=== PATIENT | female | born 1960 | race Caucasian/White ===

== ENCOUNTER → 2017-02-19 | Outpatient (CLI) | payer OTHER ==
[2017-02-19 07:40] LABS: BASOPHILS % (AUTO) 1 % (0-10); EOSINOPHILS # (AUTO) 0.1 10^3/uL (0.0-0.3); EOSINOPHILS % (AUTO) 3 % (0-10); LYMPHOCYTES # (AUTO) 1.1 X 10^3 (1.0-4.0); LYMPHOCYTES % (AUTO) 30 % (12-44); MEAN CORPUSCULAR HEMOGLOBIN 32 PG (25-34); MEAN CORPUSCULAR HGB CONC 33 G/DL (32-36); MEAN CORPUSCULAR VOLUME 97 FL (80-99); MEAN PLATELET VOLUME 9.8 FL (7.4-10.4); MONOCYTES # (AUTO) 0.4 X 10^3 (0.0-1.0); MONOCYTES % (AUTO) 11 % (0-12); NEUTROPHILS # (AUTO) 2.1 X 10^3 (1.8-7.8); NEUTROPHILS % (AUTO) 55 % (42-75); PLATELET COUNT 225 10^3/uL (130-400); RED BLOOD COUNT 4.24 10^6/uL (4.35-5.85); RED CELL DISTRIBUTION WIDTH 12.2 % (10.0-14.5); WHITE BLOOD COUNT 3.7 10^3/uL (4.3-11.0)
[2017-02-19 08:00] LABS: ALANINE AMINOTRANSFERASE 16 U/L (0-55); ALBUMIN 4.3 G/DL (3.2-4.5); ANION GAP 7 MMOL/L (5-14); ASPARTATE AMINO TRANSFERASE 20 U/L (5-34); BILIRUBIN,TOTAL 0.7 MG/DL (0.1-1.0); BLOOD UREA NITROGEN 15 MG/DL (7-18); BUN/CREATININE RATIO 21; CALCIUM 9.4 MG/DL (8.5-10.1); CARBON DIOXIDE 27 MMOL/L (21-32); CHLORIDE 107 MMOL/L (98-107); CHOLESTEROL 236 MG/DL (< 200); CREATININE SERUM 0.73 MG/DL (0.60-1.30); DIRECT LDL 141 MG/DL (1-129); GFR ESTIMATED > 60; GLUCOSE 96 MG/DL (70-105); SODIUM 141 MMOL/L (135-145); TOTAL PROTEIN 7.2 G/DL (6.4-8.2); TRIGLYCERIDES 85 MG/DL (<150); VLDL CHOLESTEROL 17 MG/DL (5-40)
[2017-02-19 08:20] LABS: THYROID STIMULATING HORMONE 2.13 UIU/ML (0.35-4.94)
== END ==
LOC: LAB 07:22
PROVIDERS: ATTEND Internal Medicine
DX: Z00.00 Encounter for general adult medical examination without abnormal findings (principal); E55.9 Vitamin D deficiency, unspecified; E78.00 Pure hypercholesterolemia, unspecified; E78.1 Pure hyperglyceridemia; E03.9 Hypothyroidism, unspecified
CPT/HCPCS: 36415; 80053; 80061; 82306; 84439; 84443; 85025

== ENCOUNTER → 2017-06-28 | Outpatient (CLI) | payer OTHER ==
--- NOTE | 2017-07-01 15:32 | Diagnostic Imaging Report ---
EXAMINATION: Bilateral screening mammogram 2D views with tomosynthesis. The current study was also evaluated with a Computer Aided Detection (CAD) system. INDICATION: Screening. PERSONAL HISTORY: No current complaints stated on the questionnaire. COMPARISON: 06/20/2016. FINDINGS: The breasts are composed of heterogeneously dense parenchyma which may decrease mammographic sensitivity. There are scattered benign-appearing calcifications. Allowing for technique and positional differences, no suspicious change is seen. IMPRESSION: Dense breasts with no definite change. ACR BI-RADS Category 2: Benign findings. Result letter will be mailed to the patient. Note: At least 10% of breast cancer is not imaged by mammography. Dictated by: Dictated on workstation # [id number]
== END ==
LOC: RAD 13:13
PROVIDERS: ATTEND Internal Medicine
DX: Z12.31 Encounter for screening mammogram for malignant neoplasm of breast (principal)
CPT/HCPCS: 77067

== ENCOUNTER 2017-12-05 05:28 | Outpatient (CLI) | payer OTHER ==
[~2017-12-05] VITALS: Ht 170.2 cm; Wt 59.0 kg
[2017-12-05] MEDS ORDERED: LEVO75TA6 PO (11:48)
[2017-12-05] MEDS ORDERED: SPIR25TA3 PO (11:48)
[2017-12-05] MEDS ORDERED: ESTR1TAB24 PO (11:48)
== END 2017-12-05 11:54 ==
LOC: PREOP 05:28
PROVIDERS: ATTEND Obstetrics & Gynecology
DX: Z01.818 Encounter for other preprocedural examination (principal); N81.4 Uterovaginal prolapse, unspecified; D64.9 Anemia, unspecified

== ENCOUNTER 2017-12-13 08:56 | Day surgery (SDC) | payer OTHER ==
[~2017-12-13] VITALS: Ht 170.2 cm; Wt 59.0 kg
[~2017-12-13 08:56] MED LIST: ESTR1TAB24 PO; LEVO75TA6 PO; SPIR25TA3 PO
[2017-12-13 09:00] VITALS: BP 112/80
[2017-12-13] MEDS ORDERED: LACTATED RINGERS 1,000 ML IV PRN (09:04)
[2017-12-13] MEDS ORDERED: ceFAZolin INJECTION 1,000 MG in NS (IVPB) 100 ML IV ONE (09:15)
[2017-12-13] MEDS: LACTATED RINGERS 1,000 ML IV PRN ×2 (09:20→11:00)
[2017-12-13] MEDS ORDERED: ONDANSETRON 4 MG/2 ML (SDV) Z0FRAN ONE (09:22)
[2017-12-13] MEDS ORDERED: FAMOTIDINE 20MG/2ML IV (PEPCID) ONE (09:23)
[2017-12-13] MEDS ORDERED: ONDANSETRON 4 MG/2 ML (SDV) Z0FRAN IV ONE (09:30)
[2017-12-13] MEDS ORDERED: FAMOTIDINE 20MG/2ML IV (PEPCID) IV ONE (09:30)
[2017-12-13 09:42] LABS: BASOPHILS % (AUTO) 1 % (0-10); EOSINOPHILS # (AUTO) 0.1 10^3/uL (0.0-0.3); EOSINOPHILS % (AUTO) 2 % (0-10); HEMATOCRIT 39 % (35-52); HEMOGLOBIN 13.4 G/DL (11.5-16.0); LYMPHOCYTES # (AUTO) 1.2 X 10^3 (1.0-4.0); LYMPHOCYTES % (AUTO) 22 % (12-44); MEAN CORPUSCULAR HEMOGLOBIN 33 PG (25-34); MEAN CORPUSCULAR HGB CONC 34 G/DL (32-36); MEAN CORPUSCULAR VOLUME 97 FL (80-99); MEAN PLATELET VOLUME 9.8 FL (7.4-10.4); MONOCYTES # (AUTO) 0.5 X 10^3 (0.0-1.0); MONOCYTES % (AUTO) 9 % (0-12); NEUTROPHILS # (AUTO) 3.6 X 10^3 (1.8-7.8); NEUTROPHILS % (AUTO) 66 % (42-75); PLATELET COUNT 244 10^3/uL (130-400); RED BLOOD COUNT 4.06 10^6/uL (4.35-5.85); RED CELL DISTRIBUTION WIDTH 11.4 % (10.0-14.5); WHITE BLOOD COUNT 5.4 10^3/uL (4.3-11.0)
--- NOTE | 2017-12-13 10:00 | Progress Note-Pre Operative ---
Pre-Operative Progress Note H&P Reviewed The H&P was reviewed, patient examined and no changes noted. Date Seen by Provider: Dec 13, 2017 Time Seen by Provider: 10:00 Date H&P Reviewed: Dec 13, 2017 Time H&P Reviewed: 10:00 Pre-Operative Diagnosis: Uterovaginal prolapse and stress urinary incontinence ANTONIO ANAYA MD Dec 13, 2017 10:00 am
[2017-12-13] MEDS ORDERED: ROCURONIUM 10 MG/ML 5 ML SYRINGE IV ONE (10:01)
[2017-12-13] MEDS ORDERED: LIDOCAINE PF 2% 5 ML (XYLOCAINE) VIAL ONE (10:01)
[2017-12-13] MEDS ORDERED: proPOfol 200 MG/20 ML (DIPRIVAN) VIAL IV ONE (10:01)
[2017-12-13] MEDS ORDERED: SEVOFLURANE (ULTANE) 15 ML INHAL SOLN ONE ×6 (10:01→12:14)
[2017-12-13] MEDS ORDERED: DEXAMETHASONE 10 MG/ML (DECADRON) 1 ML VIAL ONE (10:01)
--- NOTE | 2017-12-13 10:01 | Progress Note-Post Operative ---
Post-Operative Progess Note Surgeon (s)/Motor Coach Chauffeur (s) Surgeon ANTONIO ANAYA MD Motor Coach Chauffeur: Precious King Pre-Operative Diagnosis Uterovaginal prolapse and stress urinary incontinence Post-Operative Diagnosis Same with pathology pending Procedure & Operative Findings Date of Procedure 12/13/17 Procedure Performed/Findings T LH/BSO/A&P repair with enterocele repair and with with Dr. Joseph pubovaginal sling and cystoscopy Anesthesia Type GETA Estimated Blood Loss Estimated blood loss (mL): 100cc Specimens/Packing Specimens Removed Uterus fallopian tubes and ovaries Packing: Kerlix to the vagina ANTONIO ANAYA MD Dec 13, 2017 10:01
[2017-12-13] MEDS ORDERED: BUP/EPI 0.5% 1:200,000 (SENSORCAINE) 30 ML VIAL ONE (10:02)
[2017-12-13] MEDS ORDERED: MIDAZOLAM 2 MG/2 ML (VERSED) VIAL ONE (10:02)
[2017-12-13] MEDS ORDERED: fentaNYL INJECTION 100 MCG/2 ML AMP ONE (10:02)
[2017-12-13] MEDS ORDERED: OXYC-465 PO (10:07)
[2017-12-13] MEDS ORDERED: DOCU100C37 PO (10:07)
[2017-12-13] MEDS ORDERED: IBUP-1780 PO (10:07)
--- NOTE | 2017-12-13 10:09 | Discharge Instructions ---
Discharge Instructions Discharge Medications New, Converted or Re-Newed RX: RX on Chart Patient Instructions Patient Instructions: As directed Return to The Hospital For: As directed Activity & Diet Discharge Diet: No Restrictions Activity as Tolerated: No Orders-Post D/C & Referrals Follow Up Appt: Return to clinic with me on Saturday December 16, 2017 at 9:30 AM fotr staple removal Call to make follow up appt. for patient in 4 weeks. Activity: Rest for 24 hours, than as tolerated. Wound Care: May remove Band-Aid tomorrow. Replace as desired. Keep incisions clean and dry. Wash daily with soap and water. Please call in RX to patient pharmacy. Diet: As tolerated-Clear Liquids only if nauseated. Tomorrow, may shower or tub bathe as desired. No driving for 24 hours, no alcoholic beverages for 24 hours, and nothing per vagina (no tampons, douching, or intercourse) for 8 weeks. Patient to return to the clinic as soon as possible for: Temperature greater than 101F, Severe Pain, Foul discharge from incision or vagina, Excessive Bleeding (more than a period). ANTONIO ANAYA MD Dec 13, 2017 10:09 am
[2017-12-13] MEDS ORDERED: ESTRADIOL VAGINAL CREAM 42.5 GM (ESTRACE) VG ONE (10:14)
[2017-12-13] MEDS ORDERED: KETOROLAC 30 MG/ML VIAL IVP SCH ×2 (10:15→19:00)
[2017-12-13] MEDS ORDERED: BENZOCAINE/MENTHOL (DERMOPLAST) 56 ML CAN TP PRN (10:15)
[2017-12-13] MEDS ORDERED: ONDANSETRON 4 MG/2 ML (SDV) Z0FRAN IVP PRN ×2 (10:15→12:45)
[2017-12-13] MEDS ORDERED: WATER (STERILE) FOR INJ 10 ML BTL INJ ONE (10:15)
[2017-12-13] MEDS ORDERED: MEPERIDINE (DEMEROL) INJ 100 MG/ML IM PRN (10:15)
[2017-12-13] MEDS ORDERED: PROMETHAZINE INJ 25 MG/ML (PHENERGAN) AMP IM PRN (10:15)
[2017-12-13] MEDS ORDERED: ESTROGENS CONJ IV 25 MG/5 ML (PREMARIN) VIAL IVP ONE (10:15)
--- NOTE | 2017-12-13 12:11 | Progress Note-Post Operative ---
Post-Operative Progess Note Surgeon (s)/Installation Engineer (s) Surgeon CALLIE SOLARES MD Installation Engineer: JACLYN Pre-Operative Diagnosis Uterovaginal prolapse and stress urinary incontinence Post-Operative Diagnosis SAME Procedure & Operative Findings Date of Procedure 12/13/17 Procedure Performed/Findings PVS AND CYSTO Anesthesia Type GENERAL Estimated Blood Loss Estimated blood loss (mL): NEGLIGIBLE Specimens/Packing Specimens Removed N/A Packing: Kerlix to the vagina CALLIE SOLARES MD Dec 13, 2017 12:11 pm
[2017-12-13] MEDS: morphine INJ 10 MG/ML 1ML (SYR OR VIAL) IVP PRN ×2 (12:40→12:45)
[2017-12-13] MEDS ORDERED: KETOROLAC 30 MG/ML VIAL ONE (12:44)
[2017-12-13] MEDS ORDERED: WATER (STERILE) FOR INJECTION 10 ML ONE (12:45)
[2017-12-13] MEDS ORDERED: ESTROGENS CONJ IV 25 MG/5 ML (PREMARIN) VIAL ONE (12:45)
[2017-12-13] MEDS ORDERED: MEPERIDINE (DEMEROL) INJ 50 MG/ML IVP PRN (12:45)
[2017-12-13] MEDS ORDERED: HYDROmorphone (DILAUDID) 2 MG/ML VIAL ONE (13:10)
[2017-12-13] MEDS: HYDROmorphone (DILAUDID) 2 MG/ML VIAL IVP PRN ×2 (13:15→13:25)
[2017-12-13 14:05] VITALS: BP 93/58
[2017-12-13] MEDS ORDERED: D5 LR IV SOLUTION 1,000 ML IV ONE (14:12)
[2017-12-13] MEDS: D5 LR IV SOLUTION 1,000 ML IV SCH ×2 (14:21→22:15)
--- NOTE | 2017-12-13 14:58 | Anesthesia-General Post-Op ---
General Patient Condition Mental Status/LOC: Same as Preop Cardiovascular: Satisfactory Nausea/Vomiting: Absent Respiratory: Satisfactory Pain: Controlled Complications: Absent Post Op Complications Complications None Follow Up Care/Instructions Patient Instructions None needed. Anesthesia/Patient Condition Patient Condition Patient is doing well, no complaints, stable vital signs, no apparent adverse anesthesia problems. No complications reported per nursing. D/C home per [facility] Criteria: No BRIAN KING CRNA Dec 13, 2017 14:58
[2017-12-13 16:00] VITALS: BP 92/57
[2017-12-13] MEDS ORDERED: oxyCODONE/APAP 10/325MG (PERCOCET 10) TABLET PO ONE (16:42)
[2017-12-13] MEDS: oxyCODONE/APAP 10/325MG (PERCOCET 10) TABLET PO PRN ×2 (16:46→21:06)
--- NOTE | 2017-12-13 18:37 | OPERATIVE REPORT ---
DATE OF SERVICE: 12/13/2017 PREOPERATIVE DIAGNOSIS: On my part, stress urinary incontinence. POSTOPERATIVE DIAGNOSIS: On my part, stress urinary incontinence. OPERATION PERFORMED: Pubovaginal sling and cystoscopy. SURGEON: Callie Solares MD. AIRPLANE RIGGER: Orestes North MD. ANESTHESIA: General. COMPLICATIONS: None. DESCRIPTION OF PROCEDURE: Under satisfactory general anesthesia, the patient in extended lithotomy position and after Dr. North proceeded with the first part of his surgery that he will dictate, went ahead and put a Calixto catheter draining clear urine. I passed the Solyx device sling on both sides using the described technique. The sling was sitting nicely under the mid urethra with no tension or twist and passage of a curved hemostat easily between it and the underlying urethra. I removed the Calixto catheter to perform cystoscopy to confirm the integrity of the bladder, ureters and urethra and presence of the sling under the mid urethra. I left the bladder half full, removed the cystoscope and performed a manual Valsalva maneuver that was negative. I reinserted a Calixto catheter draining clear urine. Estimated blood loss on my part negligible and Dr. North proceeded with the rest of his surgery that he will dictate. Job ID: [id number] DocumentID: [id number] Dictated Date: 12/13/2017 12:13:05 Sash Assembler Date: 12/13/2017 18:37:09 Dictated By: CALLIE SOLARES MD
--- NOTE | 2017-12-13 19:18 | OPERATIVE REPORT ---
DATE OF SERVICE: 12/13/2017 PREOPERATIVE DIAGNOSES: Uterovaginal prolapse, stress urinary incontinence. POSTOPERATIVE DIAGNOSES: Uterovaginal prolapse, stress urinary incontinence with enterocele. OPERATIVE PROCEDURE: Total laparoscopic hysterectomy with bilateral salpingo-oophorectomy followed by anterior and posterior vaginal repair with enterocele repair with Dr. Jarrell doing a pubovaginal sling and a cystoscopy. OPERATIVE DESCRIPTION: With the patient in supine position under satisfactory general anesthesia, she was repositioned in dorsal lithotomy position in the [facility] and prepped and draped in the usual fashion for abdominal and vaginal surgery. Calixto catheter was placed in the urinary bladder and left to dependent drainage. Weighted speculum was placed in the posterior fornix of the vagina. Cervix was exposed and grasped anteriorly with single tooth tenaculum. Uterus was sounded to 11 cm with uterine sound. Cervix was then serially dilated with Heron dilators to allow placement of a Laurie II manipulator, which was positioned with a 6 mm x 8 cm uterine probe and a 35 mm colpotomy ring. Sutures of #1 Vicryl were placed at 3 o'clock and 9 o'clock position of the cervix to affix the cervix to the manipulator. The patient was brought in low dorsal lithotomy position. A 12 mm incision was made 3 cm superior to the umbilicus. Veress needle was placed through that incision into the abdominal cavity and correct placement was confirmed with a water drop test. The abdomen was insufflated with 2.4 liters of carbon dioxide and the Veress needle was removed and the abdominal wall was transilluminated. Ports of 8 mm were placed 9 cm lateral to the umbilicus under direct vision. The incision sites for all three ports were infiltrated with 0.5% Marcaine with epinephrine prior to incision. The patient was placed in Trendelenburg allowing the bowel to spill up out of the pelvis. The operative instruments were placed and affixed and then I retired to the da Magalis console for the laparoscopic portion of the procedure. Using a vessel sealer on the right and a bipolar fenestrated grasper on the left, the pelvis was first examined. The uterus was somewhat small, mottled in appearance and quite mobile. Both ovaries were atretic appearing. Both fallopian tubes showed evidence of remote tubal sterilization with Falope ring. The appendix could not be identified as it was high on the right and behind multiple loops of small bowel. There was no abnormal pathology in the cul-de-sac. Both ureters were seemed to peristalse at this time. The right tube and ovary were grasped and elevated. The IP ligament was clamped, cauterized and divided that was continued with the vessel sealer across the mesovarium, the round ligament, the broad ligament and down onto the cardinal ligament. Same procedure was performed on the left allowing for removal of both tubes and ovaries eventually with the uterus. Anterior lower uterine segment peritoneum was divided with monopolar catarina replacing the vessel sealer. The bladder was carefully dissected down off the lower uterine segment and colpotomy incision was made at 12 o'clock position onto the colpotomy ring. That incision was continued circumferentially until the entire colpotomy ring was exposed. The uterus with the tubes and ovaries still attached was extracted through the vagina. The vaginal cuff was closed with two sutures of V-Loc barbed suture starting first from the right angle including the uterine vessel pedicles then continuing stepwise to the midportion of the vaginal cuff. The second suture was started on the left doing the same thing closing the cuff completely and with complete hemostasis. The bladder peritoneum was brought back down onto the cuff with the last stitch on each side. The pelvis was irrigated and examined for hemostasis, which was complete. The ureters were seemed to peristalse before this procedure, during the procedure and now after the completion of the hysterectomy. They were both peristalsing freely. Neither showed any dilation of the procedure. The laparoscopic portion of the procedure at this point was halted. The operative instruments were removed under direct vision as were the ports. The patient was brought out of Trendelenburg. The abdomen was evacuated insufflating gas in the process of removing the ports. The skin incisions were stapled. The fascia at the supraumbilical incision was closed with qrhnmh-hy-spovs suture of 2-0 Vicryl. The patient was now repositioned for the vaginal portion of the procedure. The weighted speculum was placed in the posterior fornix of the vagina. The anterior vaginal wall was grasped with two Levi clamps, starting the anterior repair by opening the vaginal wall in the midline, dissecting the vaginal wall off the muscularis of the vagina back to the pubic rami bilaterally. The endopelvic fascia was then plicated with sutures of 2-0 Vicryl elevating the bladder and lengthening the urethra. At this point, Dr. Jarrell assumed care of the patient, placed his pubovaginal sling and performed cystoscopy. I remained to assist. On completion of Dr. Jarrell's portion of the procedure, he scrubbed out and I resumed care of the patient, resected redundant anterior vaginal wall muscularis mucosa and then closed the vaginal wall with a running locked suture of 2-0 Vicryl. Good support was evident and good hemostasis was achieved. Posterior repair was now affected by placing Levi clamps on the perineum and the hymenal ring at 5 o'clock and 7 o'clock position and the inverted triangle of skin was removed from the perineal body in upright triangle from the posterior vaginal floor. The rectovaginal space was entered sharply and dissected bluntly to the apex of the vagina where a small enterocele was found. This was reduced and plicated with two 2-0 Vicryl pursestring sutures obliterating the enterocele. The rectovaginal space was then obliterated with additional sutures of 2-0 Vicryl and the perineal body was restored with additional sutures of 2-0 Vicryl as well. Redundant posterior vaginal wall muscularis mucosa was removed sharply. The vaginal wall was closed with running locked suture of 3-0 Vicryl Rapide, that closure was continued past the hymenal ring down on the perineal body then back up subcutaneous to the hymenal ring where the suture was tied. The vagina was examined for hemostasis. That being complete, the vagina was filled with Estrace vaginal cream and a pack of Kerlix gauze was placed. Digital rectal exam confirmed no stricture or stenosis of the rectum and no sutures into or through the rectal mucosa. Sponge and needle counts were correct at the end of the procedure. Estimated blood loss for the total procedure was around 100 mL, 95% of that was from the anterior and posterior vaginal repairs. The patient tolerated the procedure well and was uneventfully awakened from general anesthesia and transferred to the recovery room in stable condition. Job ID: [id number] DocumentID: [id number] Dictated Date: 12/13/2017 12:21:29 Organ Pipe Voicer Date: 12/13/2017 19:17:40 Dictated By: ANTONIO ANAYA MD
[2017-12-13 21:00] VITALS: BP 88/52
[2017-12-14 01:50] VITALS: BP 89/49
[2017-12-14] MEDS ORDERED: IBUPROFEN 800 MG (MOTRIN) TAB PO ONE ×2 (01:57→07:42)
[2017-12-14] MEDS: IBUPROFEN 800 MG (MOTRIN) TAB PO SCH ×2 (02:00→07:51)
[2017-12-14 05:30] VITALS: BP 88/51
[2017-12-14 07:50] VITALS: BP 79/50
[2017-12-14] MEDS ORDERED: ESTRADIOL 1 MG TAB (ESTRACE) PO SCH (09:00)
[2017-12-14] MEDS ORDERED: DOCUSATE SODIUM 100 MG (COLACE) CAP PO SCH (09:00)
--- NOTE | 2017-12-14 10:54 | Discharge Inst-Urology ---
Discharge Inst-Urology Discharge Medications New, Converted, or Re-newed RX: RX given to Patient/Fam Patient Instructions/Follow Up Plan PATIENT to make appointment to been seen in office in 2 weeks. Rest till then Keep bowels soft and moving Showers no bath Increase oral fluids for 48 hours and then as needed. If questions or concerns contact your physician Or seek help at emergency department. CALLIE SOLARES MD Dec 14, 2017 10:53
--- NOTE | 2017-12-14 10:56 | Progress Note-Urology ---
Progress Note-Urology Progress Notes/Assess & Plan Progress/Assessment & Plan AFEBRILE, VSS. VOIDED THIS AM. PVR SCAN 220. PLAN STRAIGHT CATH AND RECHECK PVR AGAIN LATER AND PLAN DISCHARGE Final Diagnosis INCONTINENCE CALLIE SOLARES MD Dec 14, 2017 10:56 am
--- OUTSIDE RECORDS SUMMARY | 2017-12-15 04:08 | XMS REPORT | Clinical Summary ---
Author Author User, [employer] Organization [facility] [place] Address Unknown Phone Unavailable Allergies, Adverse Reactions, Alerts Allergy Name Reaction Description Start Date Severity Status Provider No Known Allergies Paul Jaylene Conditions or Problems Problem Name Problem Code Onset Date Status Entry Date Provider Comment Standard Description Annotate SCREENING MAMMOGRAM NEC V76.12 Resolved Joanne Bui Other screening mammogram GOITER 240.9 Resolved Joanne Bui Goiter, unspecified GENITAL HERPES 054.10 Active Joanne Bui Genital herpes, unspecified HERPES SIMPLEX INFECTION 054.9 Active Joanne Bui Herpes simplex without mention of complication WELL WOMAN V70.0 Resolved Joanne Bui Routine general medical examination at a health care facility PAC 427.61 Resolved Joanne Bui Supraventricular premature beats PALPITATIONS, OCCASIONAL 785.1 Resolved Joanne Bui Palpitations MENOPAUSAL SYNDROME 627.0 Resolved Joanne Bui Premenopausal menorrhagia MENORRHAGIA 626.2 Resolved Joanne Bui Excessive or frequent menstruation SMOKER 305.1 Active Joanne Bui Tobacco use disorder VAGINITIS, ATROPHIC 627.3 Resolved Joanne Bui Postmenopausal atrophic vaginitis INSOMNIA 780.52 Resolved Joanne Bui Insomnia, unspecified HEALTH SCREENING V70.0 Active Joanne Bui Routine general medical examination at a health care facility CYSTOCELE, MIDLINE 618.01 Active Joanne Bui Cystocele, midline URINARY FREQUENCY 788.41 Active Joanne Bui Urinary frequency ACNE VULGARIS, FACIAL 706.1 Active Joanne Bui Other acne CANDIDIASIS, VAGINAL 112.1 Active Joanne Bui Candidiasis of vulva and vagina Medication List Medication Instructions Start Date Stop Date Generic Name NDC Status Provider Patient Instruction PREMARIN 0.625 MG/GM CREA Apply a small amount to affected area nightly prn ESTROGENS, CONJUGATED VAGINAL 36657075021 No Longer Active Joanne Bui CLINDAMAX 1 % LOTN apply every day CLINDAMYCIN PHOSPHATE 70442470646 Active Joanne Bui RETIN-A 0.025 % CREA apply every night TRETINOIN 34251866477 Active Joanne Bui SPIRONOLACTONE 25 MG TAB 1 PO daily SPIRONOLACTONE 35604200051 Active Joanne Bui TERAZOL 7 0.4 % CREA 1 applicator full per vagina QHS for 7 days TERCONAZOLE VAGINAL 07421686714 No Longer Active Joanne MILLERTIX CONTINUING MONTH UBALDO 1 MG TABS as directed VARENICLINE TARTRATE 80940560523 No Longer Active Joanne Bui XANAX 0.25 MG TABS 1 PO Q6hrs prn ALPRAZOLAM 40419388005 No Longer Active Joanne Bui LAMISIL 250 MG TAB 1 PO Daily TERBINAFINE HCL 31155681816 No Longer Active Joanne Bui CALTRATE 600 PLUS-VIT D 600-200 MG-IU TABS 1 PO BID CALCIUM- VITAMIN D Active Joanne Bui CHANTIX STARTING MONTH UBALDO 0.5 MG X 11 & 1 MG X 42 MISC As Directed VARENICLINE TARTRATE 08195452073 No Longer Active Joanne Bui ORTHO-CYCLEN (28) 0.25-35 MG-MCG TABS 1 PO daily NORGESTIMATE-ETH ESTRADIOL 63980860991 No Longer Active Joanne Bui TERAZOL 7 0.4 % CREA 1 applicator full per vagina QHS for 7 days TERCONAZOLE VAGINAL 26497598988 No Longer Active Z Z VALTREX 1 GM TABS 1 PO BID for blisters VALACYCLOVIR HCL 36780336414 Active Joanne Bui CHANTIX 1 MG TABS 1 PO daily VARENICLINE TARTRATE 42449253852 No Longer Active Joanne Bui ACYCLOVIR 400 MG TABS 1 PO BID ACYCLOVIR 61655564477 No Longer Active Joanne Bui Immunizations Vaccine Administration Date Value Standard Description Influenza vaccine given done influenza virus vaccine, unspecified formulation Influenza vaccine given Done influenza virus vaccine, unspecified formulation Vital Signs Date Name Value Unit Range Description blood pressure, diastolic - 8462-4 62 mm[Hg] BP li blood pressure, systolic - 8480-6 106 mm[Hg] BP sys pulse rate E&M - 8867-4 66 /min Heart rate respiratory rate E&M - 9279-1 14 /min Resp rate weight E&M - 3141-9 142 [lb_av] Weight Measured blood pressure, diastolic - 8462-4 78 mm[Hg] BP li blood pressure, systolic - 8480-6 118 mm[Hg] BP sys pulse rate E&M - 8867-4 72 /min Heart rate respiratory rate E&M - 9279-1 14 /min Resp rate weight E&M - 3141-9 140 [lb_av] Weight Measured Encounters Code Encounter Date Provider Facility CPT-85708 Ofc Vst, Est Level III 15:44:12 CDT Joanne Bui DO, FACP CPT-78767 Ofc Vst, Est Level IV 15:54:42 RECORDS ASSISTANT Joanne Bui [facility] CPT-83351 Ofc Vst, Est Level III 12:52:40 CDT Joanne Bui DO, FACP CPT-00042 Ofc Vst, Est Level IV 15:24:05 CDT [facility] Vilma Bui [facility] CPT-00188 Ofc Vst, Est Level V 15:35:53 RECORDS ASSISTANT [facility] Vil[facility] CPT-71579 Ofc Vst, Est Level IV 16:23:15 RECORDS ASSISTANT Joanne Bui DO, FACP CPT-79031 Ofc Vst, Est Level III 14:48:27 CDT Joanne Bui [facility] [place] CPT-83145 Ofc Vst, New Level III 09:49:12 RECORDS ASSISTANT Jonane Bui [facility] [place] Procedures Code Procedure Name Date Entry Date Standard Description CPT-59226 Handling of specimen from office to lab 15:44:12 CDT CPT-92634 Preventive, Est, (40-64) 15:01:11 RECORDS ASSISTANT CPT-36116 Handling of specimen from office to lab 13:56:07 RECORDS ASSISTANT CPT-73873 Preventive, Est, (40-64) 13:56:07 RECORDS ASSISTANT CPT-53496 Preventive, Est, (40-64) 13:55:20 CDT CPT-48366 Preventive, Est, (40-64) 15:25:57 RECORDS ASSISTANT CPT-01114 Handling of specimen from office to lab 15:25:57 RECORDS ASSISTANT CPT-26866 Preventive, Est, (40-64) 12:28:48 RECORDS ASSISTANT CPT-10723 Handling of specimen from office to lab 12:28:48 RECORDS ASSISTANT
--- OUTSIDE RECORDS SUMMARY | 2017-12-15 04:08 | XMS REPORT | Clinical Summary ---
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 Active Joanne Bui Multiple involvement of mitral and aortic valves Medication List Medication Instructions Start Date Stop Date Generic Name NDC Status Provider Patient Instruction CHANTIX CONTINUING MONTH UBALDO 1 MG TABS 1 PO BID VARENICLINE TARTRATE 56563360023 Active Joanne Bui SYNTHROID 0.05 MG TAB 1 PO daily LEVOTHYROXINE SODIUM 84012814371 Active Ilsa Davila PREMARIN 0.625 MG/GM CREA Apply a small amount to affected area nightly prn ESTROGENS, CONJUGATED VAGINAL 65755276253 No Longer Active Joanne Bui CLINDAMAX 1 % LOTN apply every day CLINDAMYCIN PHOSPHATE 89586954187 Active Joanne Bui RETIN-A 0.025 % CREA apply every night TRETINOIN 01794554443 Active Joanne Bui SPIRONOLACTONE 25 MG TAB 1 PO daily SPIRONOLACTONE 85091394168 Active Joanne Bui TERAZOL 7 0.4 % CREA 1 applicator full per vagina QHS for 7 days TERCONAZOLE VAGINAL 12938907127 No Longer Active Joanne Bui CHANTIX CONTINUING MONTH UBALDO 1 MG TABS as directed VARENICLINE TARTRATE 41738681187 No Longer Active Joannemahi Bui XANAX 0.25 MG TABS 1 PO Q6hrs prn ALPRAZOLAM 66468599169 No Longer Active Joannemahi Bui LAMISIL 250 MG TAB 1 PO Daily TERBINAFINE HCL 40034433545 No Longer Active Joannemahi Bui CALTRATE 600 PLUS-VIT D 600-200 MG-IU TABS 1 PO BID CALCIUM- VITAMIN D Active Joannemahi Bui CHANTIX STARTING MONTH UBALDO 0.5 MG X 11 & 1 MG X 42 MISC As Directed VARENICLINE TARTRATE 67476010305 No Longer Active Joannemahi Bui ORTHO-CYCLEN (28) 0.25-35 MG-MCG TABS 1 PO daily NORGESTIMATE-ETH ESTRADIOL 60229967855 No Longer Active Joannemahi Bui TERAZOL 7 0.4 % CREA 1 applicator full per vagina QHS for 7 days TERCONAZOLE VAGINAL 47798718243 No Longer Active Z Z VALTREX 1 GM TABS 1 PO BID for blisters VALACYCLOVIR HCL 78258789531 Active Joannemahi Bui CHANTIX 1 MG TABS 1 PO daily VARENICLINE TARTRATE 72751805468 No Longer Active Joannemahi Bui ACYCLOVIR 400 MG TABS 1 PO BID ACYCLOVIR 18074237735 No Longer Active Joanne Bui Immunizations Vaccine Administration Date Value Standard Description Influenza vaccine given done influenza virus vaccine, unspecified formulation Influenza vaccine given Done influenza virus vaccine, unspecified formulation Vital Signs Date Name Value Unit Range Description blood pressure, diastolic - 8462-4 78 mm[Hg] BP li blood pressure, systolic - 8480-6 116 mm[Hg] BP sys pulse rate E&M - 8867-4 72 /min Heart rate respiratory rate E&M - 9279-1 14 /min Resp rate weight E&M - 3141-9 142 [lb_av] Weight Measured blood pressure, diastolic - 8462-4 60 mm[Hg] BP li blood pressure, systolic - 8480-6 115 mm[Hg] BP sys pulse rate E&M - 8867-4 64 /min Heart rate respiratory rate E&M - 9279-1 14 /min Resp rate weight E&M - 3141-9 138 [lb_av] Weight Measured blood pressure, diastolic - 8462-4 62 mm[Hg] [...] E&M - 3141-9 140 [lb_av] Weight Measured Diagnostic Results Date Name Value Unit Range Description Clinical Lists Update: CBC,CMP,FLP,TSH - Chemistry Estimated Glomerular Filtration Rate (calc) 102 mL/min/1.73m2 albumin, serum 4.2 g/dL cholesterol/HDL ratio, serum, percent 3.4 sodium, serum 139 mmol/L triglyceride, serum, fasting 120 mg/dL bilirubin, serum, total 0.7 mg/dL alanine aminotransferase (SGPT), serum 8 U/L aspartate aminotransferase (SGOT), serum 14 U/L protein, total, serum 6.5 g/dL potassium, serum 3.9 mmol/L LDL cholesterol, serum 124 mg/dL thyroid stimulating hormone, serum 9.28 u[iU]/mL HDL cholesterol, serum 61 mg/dL thyroxine, serum, free 1.0 ng/dL creatinine, serum 0.64 mg/dL carbon dioxide, venous blood 25 mmol/L cholesterol, serum 209 mg/dL chloride, serum 105 mmol/L calcium, serum 8.9 mg/dL urea nitrogen, blood 18 mg/dL alkaline phosphatase, serum 101 U/L glucose, plasma fasting 92 mg/dL Encounters Code Encounter Date Provider Facility CPT-60182 Ofc Vst, Est Level IV 16:47:[address] [facility] Ofc Vst, Est Level III 16:57:01 CDT [facility] OFFICE CPT-94972 Ofc Vst, Est Level III 15:44:12 CDT Joannemahi uBi DO, [facility] CPT-90617 Ofc Vst, Est Level IV 15:54:42 DIET ASSISTANT [facility]83 Ofc Vst, Est Level III 12:52:40 CDT Joannemahi Bui DO, FAC CPT-57099 Ofc Vst, Est Level IV 15:24:[address] [facility] CPT-96832 Ofc Vst, Est Level V 15:35:53 DIET ASSISTANT [facility] OFFICE CPT-46172 Ofc Vst, Est Level IV 16:23:15 DIET ASSISTANT Joanne Bui DO, FACP CPT-31611 Ofc Vst, Est Level III 14:48:27 CDT Joanne Bui [facility] [place] CPT-79580 Ofc Vst, New Level III 09:49:12 DIET ASSISTANT Joanne Bui [facility] [place] Procedures Code Procedure Name Date Entry Date Standard Description CPT-08092 Handling of specimen from office to lab 15:44:12 CDT CPT-56288 Preventive, Est, (40-64) 15:01:11 DIET ASSISTANT CPT-89564 Handling of specimen from office to lab 13:56:07 DIET ASSISTANT CPT-92628 Preventive, Est, (40-64) 13:56:07 DIET ASSISTANT CPT-85121 Preventive, Est, (40-64) 13:55:20 CDT CPT-86612 Preventive, Est, (40-64) 15:25:57 DIET ASSISTANT CPT-68311 Handling of specimen from office to lab 15:25:57 DIET ASSISTANT CPT-57074 Preventive, Est, (40-64) 12:28:48 DIET ASSISTANT CPT-61737 Handling of specimen from office to lab 12:28:48 DIET ASSISTANT
--- OUTSIDE RECORDS SUMMARY | 2017-12-15 04:09 | XMS REPORT | Clinical Summary ---
Author Author User, [employer] Organization [facility] [place] Address Unknown Phone Unavailable Allergies, Adverse Reactions, [...] affected area nightly prn ESTROGENS, CONJUGATED VAGINAL 25737530958 No Longer Active Joanne Bui CLINDAMAX 1 % LOTN apply every day CLINDAMYCIN PHOSPHATE 64750458967 Active Joanne Bui RETIN-A 0.025 % CREA apply every night TRETINOIN 29844965409 Active Joanne Bui SPIRONOLACTONE 25 MG TAB 1 PO daily SPIRONOLACTONE 02770835051 Active Joanne Bui TERAZOL 7 0.4 % CREA 1 applicator full per vagina QHS for 7 days TERCONAZOLE VAGINAL 77934315361 No Longer Active Joanne MILLERTIX CONTINUING MONTH UBALDO 1 MG TABS as directed VARENICLINE TARTRATE 85130239110 No Longer Active Joanne Bui XANAX 0.25 MG TABS 1 PO Q6hrs prn ALPRAZOLAM 07925309610 No Longer Active Joanne Bui LAMISIL 250 MG TAB 1 PO Daily TERBINAFINE HCL 44378971308 No Longer Active Joanne Bui CALTRATE 600 PLUS-VIT D 600-200 MG-IU TABS 1 PO BID CALCIUM- VITAMIN D Active Joanne Bui CHANTIX STARTING MONTH UBALDO 0.5 MG X 11 & 1 MG X 42 MISC As Directed VARENICLINE TARTRATE 97688600425 No Longer Active Joanne Bui ORTHO-CYCLEN (28) 0.25-35 MG-MCG TABS 1 PO daily NORGESTIMATE-ETH ESTRADIOL 76117514000 No Longer Active Joanne Bui TERAZOL 7 0.4 % CREA 1 applicator full per vagina QHS for 7 days TERCONAZOLE VAGINAL 79269470015 No Longer Active Z Z VALTREX 1 GM TABS 1 PO BID for blisters VALACYCLOVIR HCL 60229756553 Active Joanne Bui CHANTIX 1 MG TABS 1 PO daily VARENICLINE TARTRATE 11352791803 No Longer Active Joanne Bui ACYCLOVIR 400 MG TABS 1 PO BID ACYCLOVIR 05433733525 No Longer Active Joanne Bui Immunizations Vaccine [...] mg/dL Encounters Code Encounter Date Provider Facility CPT-99179 Ofc Vst, Est Level III 15:44:12 CDT Joanne Bui DO, FACP CPT-19998 Ofc Vst, Est Level IV 15:54:42 STRIPPER CUTTER MACHINE [facility] CPT-78636 Ofc Vst, Est Level III 12:52:40 CDT Joanne Bui DO, FACP CPT-08146 Ofc Vst, Est Level IV 15:24:05 CDT [facility]anne [facility] CPT-97768 Ofc Vst, Est Level V 15:35:53 STRIPPER CUTTER MACHINE Joanne Bui [place] [facility] CPT-30260 Ofc Vst, Est Level IV 16:23:15 STRIPPER CUTTER MACHINE Joanne Bui, DO, FACP CPT-84623 Ofc Vst, Est Level III 14:48:27 CDT Joanne Bui [facility] [place] CPT-07682 Ofc Vst, New Level III 09:49:12 STRIPPER CUTTER MACHINE Joanne Bui [facility] [place] Procedures Code Procedure Name Date Entry Date Standard Description CPT-79025 Handling of specimen from office to lab 15:44:12 CDT CPT-86449 Preventive, Est, (40-64) 15:01:11 STRIPPER CUTTER MACHINE CPT-60942 Handling of specimen from office to lab 13:56:07 STRIPPER CUTTER MACHINE CPT-52521 Preventive, Est, (40-64) 13:56:07 STRIPPER CUTTER MACHINE CPT-82845 Preventive, Est, (40-64) 13:55:20 CDT CPT-64400 Preventive, Est, (40-64) 15:25:57 STRIPPER CUTTER MACHINE CPT-81840 Handling of specimen from office to lab 15:25:57 STRIPPER CUTTER MACHINE CPT-83235 Preventive, Est, (40-64) 12:28:48 STRIPPER CUTTER MACHINE CPT-84834 Handling of specimen from office to lab 12:28:48 STRIPPER CUTTER MACHINE
--- OUTSIDE RECORDS SUMMARY | 2017-12-15 04:09 | XMS REPORT | Clinical Summary ---
Author Author User, [employer] Organization [facility] [place] Address Unknown Phone Unavailable Allergies, Adverse Reactions, [...] or frequent menstruation SMOKER 305.1 Active Joanne Biu Tobacco use disorder VAGINITIS, ATROPHIC 627.3 Resolved Joanne Bui Postmenopausal atrophic vaginitis INSOMNIA 780.52 Resolved Joanne Bui Insomnia, unspecified HEALTH SCREENING V70.0 Active Joanne Bui Routine general medical examination at a health care facility CYSTOCELE, MIDLINE 618.01 Active Joanne Bui Cystocele, midline URINARY FREQUENCY 788.41 Active Joanne Bui Urinary frequency ACNE VULGARIS, FACIAL 706.1 Active Joanne Bui Other acne CANDIDIASIS, VAGINAL 112.1 Active Jaonne Bui Candidiasis of vulva and vagina HYPOTHYROIDISM, PRIMARY 244.9 Active Joanne Bui Unspecified hypothyroidism EDEMA LEG 782.3 Active Joanne Bui Edema Medication List Medication Instructions Start Date Stop Date Generic Name NDC Status Provider Patient Instruction SYNTHROID 0.05 MG TAB 1 PO daily LEVOTHYROXINE SODIUM 61477419296 Active Kita Doll PREMARIN 0.625 MG/GM CREA Apply a small amount to affected area nightly prn ESTROGENS, CONJUGATED VAGINAL 33601776925 No Longer Active Joanne Bui CLINDAMAX 1 % LOTN apply every day CLINDAMYCIN PHOSPHATE 31344895810 Active Joanne Bui RETIN-A 0.025 % CREA apply every night TRETINOIN 13967660477 Active Joanne Bui SPIRONOLACTONE 25 MG TAB 1 PO daily SPIRONOLACTONE 78766843836 Active Joanne Bui TERAZOL 7 0.4 % CREA 1 applicator full per vagina QHS for 7 days TERCONAZOLE VAGINAL 36544749012 No Longer Active Joanne Bui CHANTIX CONTINUING MONTH UBALDO 1 MG TABS as directed VARENICLINE TARTRATE 77989106178 No Longer Active Joanne Bui XANAX 0.25 MG TABS 1 PO Q6hrs prn ALPRAZOLAM 85979192443 No Longer Active Joanne Bui LAMISIL 250 MG TAB 1 PO Daily TERBINAFINE HCL 51870496382 No Longer Active Joanne Bushe Ramya CALTRATE 600 PLUS-VIT D 600-200 MG-IU TABS 1 PO BID CALCIUM- VITAMIN D Active Joannemahi Bushe Ramya CHANTIX STARTING MONTH UBALDO 0.5 MG X 11 & 1 MG X 42 MISC As Directed VARENICLINE TARTRATE 02439581135 No Longer Active Joannemahi Bushe Ramya ORTHO-CYCLEN (28) 0.25-35 MG-MCG TABS 1 PO daily NORGESTIMATE-ETH ESTRADIOL 24248084429 No Longer Active Joanne Bui TERAZOL 7 0.4 % CREA 1 applicator full per vagina QHS for 7 days TERCONAZOLE VAGINAL 27126745275 No Longer Active Z Z VALTREX 1 GM TABS 1 PO BID for blisters VALACYCLOVIR HCL 79908338595 Active Joannemahi Bushe Ramya CHANTIX 1 MG TABS 1 PO daily VARENICLINE TARTRATE 97159448262 No Longer Active Joanne Bui ACYCLOVIR 400 MG TABS 1 PO BID ACYCLOVIR 15348204255 No Longer Active Joanne Bui Immunizations Vaccine Administration Date Value Standard Description Influenza vaccine given done influenza virus vaccine, unspecified formulation Influenza vaccine given Done influenza virus vaccine, unspecified formulation Vital Signs Date Name Value Unit Range Description blood pressure, diastolic - 8462-4 60 mm[Hg] [...] mg/dL Encounters Code Encounter Date Provider Facility CPT-46229 Ofc Vst, Est Level III 16:57:01 CDT [facility]ana Bui [place] OFFICE CPT-49701 Ofc Vst, Est Level III 15:44:12 CDT [facility] Vil[place] Bui DO, FACP CPT-75690 Ofc Vst, Est Level IV 15:54:42 CDL DRIVER [facility] Vilmabriana Bui [place] OFFICE CPT-55484 Ofc Vst, Est Level III 12:52:40 CDT Joanne Bui DO, FACP CPT-01779 Ofc Vst, Est Level IV 15:24:05 CDT [facility] Vilma Bui [place] OFFICE CPT-67013 Ofc Vst, Est Level V 15:35:53 CDL DRIVER [facility] Vilma Bui [place] OFFICE CPT-35105 Ofc Vst, Est Level IV 16:23:15 CDL DRIVER Joanne Bui DO, FACP CPT-80950 Ofc Vst, Est Level III 14:48:27 CDT Joanne Bui [facility] [place] CPT-77853 Ofc Vst, New Level III 09:49:12 CDL DRIVER Joanne [place] Bui [facility] Phys[facility] [place] Procedures Code Procedure Name Date Entry Date Standard Description CPT-83916 Handling of specimen from office to lab 15:44:12 CDT CPT-54346 Preventive, Est, (40-64) 15:01:11 CDL DRIVER CPT-10256 Handling of specimen from office to lab 13:56:07 CDL DRIVER CPT-77185 Preventive, Est, (40-64) 13:56:07 CDL DRIVER CPT-06390 Preventive, Est, (40-64) 13:55:20 CDT CPT-65885 Preventive, Est, (40-64) 15:25:57 CDL DRIVER CPT-89713 Handling of specimen from office to lab 15:25:57 CDL DRIVER CPT-04045 Preventive, Est, (40-64) 12:28:48 CDL DRIVER CPT-99228 Handling of specimen from office to lab 12:28:48 CDL DRIVER
--- OUTSIDE RECORDS SUMMARY | 2017-12-15 04:09 | XMS REPORT | Clinical Summary ---
Author Author User, [employer] Organization [facility] [place] Address Unknown Phone Unavailable Allergies, Adverse Reactions, [...] MG TAB 1 PO daily LEVOTHYROXINE SODIUM 34873373205 Active Ilsa Davila PREMARIN 0.625 MG/GM CREA Apply a small amount to affected area nightly prn ESTROGENS, CONJUGATED VAGINAL 39135759403 No Longer Active Joanne Bui CLINDAMAX 1 % LOTN apply every day CLINDAMYCIN PHOSPHATE 47431052314 Active Joanne Bui RETIN-A 0.025 % CREA apply every night TRETINOIN 77060638878 Active Joanne Bui SPIRONOLACTONE 25 MG TAB 1 PO daily SPIRONOLACTONE 30688142264 Active Joanne Bui TERAZOL 7 0.4 % CREA 1 applicator full per vagina QHS for 7 days TERCONAZOLE VAGINAL 87096484133 No Longer Active Joanne Bui CHANTIX CONTINUING MONTH UBALDO 1 MG TABS as directed VARENICLINE TARTRATE 54456306516 No Longer Active Joanne Bui XANAX 0.25 MG TABS 1 PO Q6hrs prn ALPRAZOLAM 01670768977 No Longer Active Joanne Bui LAMISIL 250 MG TAB 1 PO Daily TERBINAFINE HCL 49685291413 No Longer Active Joanne Bui CALTRATE 600 PLUS-VIT D 600-200 MG-IU TABS 1 PO BID CALCIUM- VITAMIN D Active Joannemahi Bui CHANTIX STARTING MONTH UBALDO 0.5 MG X 11 & 1 MG X 42 MISC As Directed VARENICLINE TARTRATE 77753032996 No Longer Active Joanne Bui ORTHO-CYCLEN (28) 0.25-35 MG-MCG TABS 1 PO daily NORGESTIMATE-ETH ESTRADIOL 81517653328 No Longer Active Joanne Bui TERAZOL 7 0.4 % CREA 1 applicator full per vagina QHS for 7 days TERCONAZOLE VAGINAL 42292094954 No Longer Active Z Z VALTREX 1 GM TABS 1 PO BID for blisters VALACYCLOVIR HCL 16395969010 Active Joannemahi Bui CHANTIX 1 MG TABS 1 PO daily VARENICLINE TARTRATE 44290510750 No Longer Active Joanne Bui ACYCLOVIR 400 MG TABS 1 PO BID ACYCLOVIR 05978550473 No Longer Active Joanne Bui Immunizations Vaccine [...] mg/dL Encounters Code Encounter Date Provider Facility CPT-81256 Ofc Vst, Est Level III 16:57:01 CDT [facility] Vilmarodrigue Bui [place] OFFICE CPT-88627 Ofc Vst, Est Level III 15:44:12 CDT [facility] Vil[place] Bui DO, FACP CPT-83746 Ofc Vst, Est Level IV 15:54:42 WIRELESS CELLULAR TECHNICIAN [facility] CPT-17076 Ofc Vst, Est Level III 12:52:40 CDT Joannemahi Bui DO, FACP CPT-85165 Ofc Vst, Est Level IV 15:24:05 CDT [facility] CPT-87744 Ofc Vst, Est Level V 15:35:53 WIRELESS CELLULAR TECHNICIAN [facility] CPT-32714 Ofc Vst, Est Level IV 16:23:15 WIRELESS CELLULAR TECHNICIAN Joanne Bui DO, FACP CPT-04494 Ofc Vst, Est Level III 14:48:27 CDT Joanne Bui [facility] [place] CPT-96805 Ofc Vst, New Level III 09:49:12 WIRELESS CELLULAR TECHNICIAN Joanne [place] Bui [facility] [place] Procedures Code Procedure Name Date Entry Date Standard Description CPT-63322 Handling of specimen from office to lab 15:44:12 CDT CPT-82629 Preventive, Est, (40-64) 15:01:11 WIRELESS CELLULAR TECHNICIAN CPT-29361 Handling of specimen from office to lab 13:56:07 WIRELESS CELLULAR TECHNICIAN CPT-19092 Preventive, Est, (40-64) 13:56:07 WIRELESS CELLULAR TECHNICIAN CPT-60298 Preventive, Est, (40-64) 13:55:20 CDT CPT-29910 Preventive, Est, (40-64) 15:25:57 WIRELESS CELLULAR TECHNICIAN CPT-16384 Handling of specimen from office to lab 15:25:57 WIRELESS CELLULAR TECHNICIAN CPT-83868 Preventive, Est, (40-64) 12:28:48 WIRELESS CELLULAR TECHNICIAN CPT-70709 Handling of specimen from office to lab 12:28:48 WIRELESS CELLULAR TECHNICIAN
--- OUTSIDE RECORDS SUMMARY | 2017-12-15 04:10 | XMS REPORT | Clinical Summary ---
Author Author User, [employer] Organization [facility] Phys[facility] [place] Address Unknown Phone Unavailable Allergies, Adverse Reactions, [...] affected area nightly prn ESTROGENS, CONJUGATED VAGINAL 77650031482 No Longer Active Joanne Bui CLINDAMAX 1 % LOTN apply every day CLINDAMYCIN PHOSPHATE 56354662927 Active Joanne Bui RETIN-A 0.025 % CREA apply every night TRETINOIN 86189273412 Active Joanne Bui SPIRONOLACTONE 25 MG TAB 1 PO daily SPIRONOLACTONE 24409507754 Active Joanne Bui TERAZOL 7 0.4 % CREA 1 applicator full per vagina QHS for 7 days TERCONAZOLE VAGINAL 29260296918 No Longer Active Joanne MILLERTIX CONTINUING MONTH UBALDO 1 MG TABS as directed VARENICLINE TARTRATE 51035655418 No Longer Active Joanne Bui XANAX 0.25 MG TABS 1 PO Q6hrs prn ALPRAZOLAM 09809491189 No Longer Active Joanne Bui LAMISIL 250 MG TAB 1 PO Daily TERBINAFINE HCL 90310551573 No Longer Active Joanne Bui CALTRATE 600 PLUS-VIT D 600-200 MG-IU TABS 1 PO BID CALCIUM- VITAMIN D Active Joanne Bui CHANTIX STARTING MONTH UBALDO 0.5 MG X 11 & 1 MG X 42 MISC As Directed VARENICLINE TARTRATE 70338310645 No Longer Active Joanne Bui ORTHO-CYCLEN (28) 0.25-35 MG-MCG TABS 1 PO daily NORGESTIMATE-ETH ESTRADIOL 12392512665 No Longer Active Joanne Bui TERAZOL 7 0.4 % CREA 1 applicator full per vagina QHS for 7 days TERCONAZOLE VAGINAL 74588624930 No Longer Active Z Z VALTREX 1 GM TABS 1 PO BID for blisters VALACYCLOVIR HCL 74889644009 Active Joanne Bui CHANTIX 1 MG TABS 1 PO daily VARENICLINE TARTRATE 14253450988 No Longer Active Joanne Bui ACYCLOVIR 400 MG TABS 1 PO BID ACYCLOVIR 06541785225 No Longer Active Joanne Bui Immunizations Vaccine [...] Measured Encounters Code Encounter Date Provider Facility CPT-39022 Ofc Vst, Est Level III 15:44:12 CDT Joanne Bui DO, FACP CPT-08831 Ofc Vst, Est Level IV 15:54:42 GSA COORDINATOR Joanne Bui [place] [facility] CPT-38764 Ofc Vst, Est Level III 12:52:40 CDT Joanne Bui DO, FACP CPT-18262 Ofc Vst, Est Level IV 15:24:05 CDT [facility] Vilma Bui [place] OFFICE CPT-21976 Ofc Vst, Est Level V 15:35:53 GSA COORDINATOR [facility] Vil[place] Bui [place] OFFICE CPT-01134 Ofc Vst, Est Level IV 16:23:15 GSA COORDINATOR Joanne Bui DO, FACP CPT-85503 Ofc Vst, Est Level III 14:48:27 CDT Joanne Bui [facility] [place] CPT-64559 Ofc Vst, New Level III 09:49:12 GSA COORDINATOR Joanne Bui [facility] Physician [place] Procedures Code Procedure Name Date Entry Date Standard Description CPT-71908 Handling of specimen from office to lab 15:44:12 CDT CPT-94124 Preventive, Est, (40-64) 15:01:11 GSA COORDINATOR CPT-66155 Handling of specimen from office to lab 13:56:07 GSA COORDINATOR CPT-14322 Preventive, Est, (40-64) 13:56:07 GSA COORDINATOR CPT-71288 Preventive, Est, (40-64) 13:55:20 CDT CPT-70185 Preventive, Est, (40-64) 15:25:57 GSA COORDINATOR CPT-94104 Handling of specimen from office to lab 15:25:57 GSA COORDINATOR CPT-12862 Preventive, Est, (40-64) 12:28:48 GSA COORDINATOR CPT-89574 Handling of specimen from office to lab 12:28:48 GSA COORDINATOR
--- OUTSIDE RECORDS SUMMARY | 2017-12-15 04:10 | XMS REPORT | Clinical Summary ---
Author Author User, [employer] Organization [facility] Physician [place] Address Unknown Phone Unavailable Allergies, Adverse Reactions, [...] affected area nightly prn ESTROGENS, CONJUGATED VAGINAL 78560628075 No Longer Active Joanne Bui CLINDAMAX 1 % LOTN apply every day CLINDAMYCIN PHOSPHATE 44935583698 Active Joanne Bui RETIN-A 0.025 % CREA apply every night TRETINOIN 92739516903 Active Joanne Bui SPIRONOLACTONE 25 MG TAB 1 PO daily SPIRONOLACTONE 74371747161 Active Joanne Bui TERAZOL 7 0.4 % CREA 1 applicator full per vagina QHS for 7 days TERCONAZOLE VAGINAL 31111044407 No Longer Active Joanne MILLERTIX CONTINUING MONTH UBALDO 1 MG TABS as directed VARENICLINE TARTRATE 05990923966 No Longer Active Joanne Bui XANAX 0.25 MG TABS 1 PO Q6hrs prn ALPRAZOLAM 97677645580 No Longer Active Joanne Bui LAMISIL 250 MG TAB 1 PO Daily TERBINAFINE HCL 79307910874 No Longer Active Joanne Bui CALTRATE 600 PLUS-VIT D 600-200 MG-IU TABS 1 PO BID CALCIUM- VITAMIN D Active Joanne Bui CHANTIX STARTING MONTH UBALDO 0.5 MG X 11 & 1 MG X 42 MISC As Directed VARENICLINE TARTRATE 57633325608 No Longer Active Joanne Bui ORTHO-CYCLEN (28) 0.25-35 MG-MCG TABS 1 PO daily NORGESTIMATE-ETH ESTRADIOL 74569692712 No Longer Active Joanne Bui TERAZOL 7 0.4 % CREA 1 applicator full per vagina QHS for 7 days TERCONAZOLE VAGINAL 43833961989 No Longer Active Z Z VALTREX 1 GM TABS 1 PO BID for blisters VALACYCLOVIR HCL 05881684920 Active Joanne Bui CHANTIX 1 MG TABS 1 PO daily VARENICLINE TARTRATE 09072948390 No Longer Active Joanne Bui ACYCLOVIR 400 MG TABS 1 PO BID ACYCLOVIR 83219070186 No Longer Active Joanne Bui Immunizations Vaccine [...] Measured Encounters Code Encounter Date Provider Facility CPT-19169 Ofc Vst, Est Level III 15:44:12 CDT Joanne Bui DO, FACP CPT-44464 Ofc Vst, Est Level IV 15:54:42 TUBE CARRIER Joanne Bui [place] OFFICE CPT-06677 Ofc Vst, Est Level III 12:52:40 CDT Joanne uBi DO, FACP CPT-95868 Ofc Vst, Est Level IV 15:24:05 CDT [facility] Vilma Bui [place] OFFICE CPT-07812 Ofc Vst, Est Level V 15:35:53 TUBE CARRIER [facility] Vilma Bui [place] OFFICE CPT-87668 Ofc Vst, Est Level IV 16:23:15 TUBE CARRIER Joanne Bui DO, FACP CPT-42118 Ofc Vst, Est Level III 14:48:27 CDT Joanne Bui [facility] Phys[facility] [place] CPT-15471 Ofc Vst, New Level III 09:49:12 TUBE CARRIER Joanne Bui [facility] Phys[facility] [place] Procedures Code Procedure Name Date Entry Date Standard Description CPT-46420 Handling of specimen from office to lab 15:44:12 CDT CPT-49079 Preventive, Est, (40-64) 15:01:11 TUBE CARRIER CPT-57247 Handling of specimen from office to lab 13:56:07 TUBE CARRIER CPT-62768 Preventive, Est, (40-64) 13:56:07 TUBE CARRIER CPT-43784 Preventive, Est, (40-64) 13:55:20 CDT CPT-67337 Preventive, Est, (40-64) 15:25:57 TUBE CARRIER CPT-12874 Handling of specimen from office to lab 15:25:57 TUBE CARRIER CPT-72067 Preventive, Est, (40-64) 12:28:48 TUBE CARRIER CPT-59267 Handling of specimen from office to lab 12:28:48 TUBE CARRIER
--- OUTSIDE RECORDS SUMMARY | 2017-12-15 04:10 | XMS REPORT | Clinical Summary ---
Author Author User, [employer] Organization [facility] Address Unknown Phone Unavailable Allergies, Adverse Reactions, [...] MG TABS 1 PO BID VARENICLINE TARTRATE 75335168479 Active Joanne Bui SYNTHROID 0.05 MG TAB 1 PO daily LEVOTHYROXINE SODIUM 50318257745 Active Ilsa Davila PREMARIN 0.625 MG/GM CREA Apply a small amount to affected area nightly prn ESTROGENS, CONJUGATED VAGINAL 63269467814 No Longer Active Joanne Bui CLINDAMAX 1 % LOTN apply every day CLINDAMYCIN PHOSPHATE 32868563172 Active Joanne Bui RETIN-A 0.025 % CREA apply every night TRETINOIN 93940309976 Active Joanne Bui SPIRONOLACTONE 25 MG TAB 1 PO daily SPIRONOLACTONE 13021498049 Active Joanne Bui TERAZOL 7 0.4 % CREA 1 applicator full per vagina QHS for 7 days TERCONAZOLE VAGINAL 35528596086 No Longer Active Joanne Bui CHANTIX CONTINUING MONTH UBALDO 1 MG TABS as directed VARENICLINE TARTRATE 22738517226 No Longer Active Joannemahi Bui XANAX 0.25 MG TABS 1 PO Q6hrs prn ALPRAZOLAM 53229655778 No Longer Active Joannemahi Bui LAMISIL 250 MG TAB 1 PO Daily TERBINAFINE HCL 99586206406 No Longer Active Joannemahi Bui CALTRATE 600 PLUS-VIT D 600-200 MG-IU TABS 1 PO BID CALCIUM- VITAMIN D Active Joannemahi Bui CHANTIX STARTING MONTH UBALDO 0.5 MG X 11 & 1 MG X 42 MISC As Directed VARENICLINE TARTRATE 52606048538 No Longer Active Joannemahi Bui ORTHO-CYCLEN (28) 0.25-35 MG-MCG TABS 1 PO daily NORGESTIMATE-ETH ESTRADIOL 34205257160 No Longer Active Joannemahi Bui TERAZOL 7 0.4 % CREA 1 applicator full per vagina QHS for 7 days TERCONAZOLE VAGINAL 19112273273 No Longer Active Z Z VALTREX 1 GM TABS 1 PO BID for blisters VALACYCLOVIR HCL 61517368944 Active Joannemahi Bui CHANTIX 1 MG TABS 1 PO daily VARENICLINE TARTRATE 43766832809 No Longer Active Joannemahi Bui ACYCLOVIR 400 MG TABS 1 PO BID ACYCLOVIR 83483692054 No Longer Active Joanne Bui Immunizations Vaccine [...] pressure, diastolic - 8462-4 62 mm[Hg] BP il blood pressure, systolic - 8480-6 106 mm[Hg] [...] mg/dL Encounters Code Encounter Date Provider Facility CPT-69795 Ofc Vst, Est Level IV 16:47:39 CDT [facility] Ofc Vst, Est Level III 16:57:01 CDT [facility] OFFICE CPT-65630 Ofc Vst, Est Level III 15:44:12 CDT Joannemahi Bui DO, [facility] CPT-39977 Ofc Vst, Est Level IV 15:54:42 SANDING SUPERVISOR [facility]15699 Ofc Vst, Est Level III 12:52:40 CDT Joannemahi Bui DO, FAC CPT-70243 Ofc Vst, Est Level IV 15:24:05 CDT [facility] CPT-71342 Ofc Vst, Est Level V 15:35:53 SANDING SUPERVISOR [facility] OFFICE CPT-03153 Ofc Vst, Est Level IV 16:23:15 SANDING SUPERVISOR Joanne Bui DO, FACP CPT-84827 Ofc Vst, Est Level III 14:48:27 CDT Joanne Bui [facility] CPT-86748 Ofc Vst, New Level III 09:49:12 SANDING SUPERVISOR Joanne Bui [facility] Procedures Code Procedure Name Date Entry Date Standard Description CPT-60935 Handling of specimen from office to lab 15:44:12 CDT CPT-78103 Preventive, Est, (40-64) 15:01:11 SANDING SUPERVISOR CPT-24797 Handling of specimen from office to lab 13:56:07 SANDING SUPERVISOR CPT-43904 Preventive, Est, (40-64) 13:56:07 SANDING SUPERVISOR CPT-69171 Preventive, Est, (40-64) 13:55:20 CDT CPT-15537 Preventive, Est, (40-64) 15:25:57 SANDING SUPERVISOR CPT-25780 Handling of specimen from office to lab 15:25:57 SANDING SUPERVISOR CPT-13747 Preventive, Est, (40-64) 12:28:48 SANDING SUPERVISOR CPT-27826 Handling of specimen from office to lab 12:28:48 SANDING SUPERVISOR
--- OUTSIDE RECORDS SUMMARY | 2017-12-15 04:11 | XMS REPORT | Continuity of Care Document ---
Author Author [facility] Organization [facility] Address Unknown Phone Unavailable Allergies There is no data. Medications There is no data. Problems There is no data. Procedures There is no data. Results There is no data. Encounters ACCT No. Visit Date/Time Discharge Status Pt. Type Provider Facility Loc./Unit Complaint [id number] 08/19/2014 16:42:18 08/19/2014 23:59:59 [facility] Outpatient Iraida Daugherty [id number] 06/17/2014 15:13:44 06/17/2014 23:59:59 [facility] Outpatient Iraida Daugherty
--- OUTSIDE RECORDS SUMMARY | 2017-12-15 04:11 | XMS REPORT | Clinical Summary ---
Author Author User, [employer] Organization [facility] Address Unknown Phone Unavailable Allergies, Adverse Reactions, [...] or frequent menstruation SMOKER 305.1 Active Joanne uBi Tobacco use disorder VAGINITIS, ATROPHIC 627.3 Resolved [...] PRIMARY 244.9 Active Joanne Bui Unspecified hypothyroidism Medication List Medication Instructions Start Date Stop Date Generic Name NDC Status Provider Patient Instruction SYNTHROID 0.05 MG TAB 1 PO daily LEVOTHYROXINE SODIUM 03981773371 Active Kita Doll PREMARIN 0.625 MG/GM CREA Apply a small amount to affected area nightly prn ESTROGENS, CONJUGATED VAGINAL 45309616061 No Longer Active Joanne Bui CLINDAMAX 1 % LOTN apply every day CLINDAMYCIN PHOSPHATE 05206061770 Active Joanne Bui RETIN-A 0.025 % CREA apply every night TRETINOIN 38554221391 Active Joanne Bui SPIRONOLACTONE 25 MG TAB 1 PO daily SPIRONOLACTONE 28661493671 Active Joanne Bui TERAZOL 7 0.4 % CREA 1 applicator full per vagina QHS for 7 days TERCONAZOLE VAGINAL 57841912970 No Longer Active Joanne Bui CHANTIX CONTINUING MONTH UBALDO 1 MG TABS as directed VARENICLINE TARTRATE 77963556056 No Longer Active Joanne Bui XANAX 0.25 MG TABS 1 PO Q6hrs prn ALPRAZOLAM 93335731037 No Longer Active Joanne Bui LAMISIL 250 MG TAB 1 PO Daily TERBINAFINE HCL 01575675395 No Longer Active Joanne Bui CALTRATE 600 PLUS-VIT D 600-200 MG-IU TABS 1 PO BID CALCIUM- VITAMIN D Active Joannemahi Bui CHANTIX STARTING MONTH UBALDO 0.5 MG X 11 & 1 MG X 42 MISC As Directed VARENICLINE TARTRATE 30125284176 No Longer Active Joanne Bui ORTHO-CYCLEN (28) 0.25-35 MG-MCG TABS 1 PO daily NORGESTIMATE-ETH ESTRADIOL 20450180630 No Longer Active Joanne Bui TERAZOL 7 0.4 % CREA 1 applicator full per vagina QHS for 7 days TERCONAZOLE VAGINAL 60171668212 No Longer Active Z Z VALTREX 1 GM TABS 1 PO BID for blisters VALACYCLOVIR HCL 70065086521 Active Joannemahi Bui CHANTIX 1 MG TABS 1 PO daily VARENICLINE TARTRATE 23939067066 No Longer Active Joanne Bui ACYCLOVIR 400 MG TABS 1 PO BID ACYCLOVIR 04677917000 No Longer Active Joanne Bui Immunizations Vaccine [...] mg/dL Encounters Code Encounter Date Provider Facility CPT-05871 Ofc Vst, Est Level III 15:44:12 CDT Jonane Bui DO, FACP CPT-73780 Ofc Vst, Est Level IV 15:54:42 RECEIVER Joanne Bui [facility] CPT-37022 Ofc Vst, Est Level III 12:52:40 CDT Joanne Florencei Ky Ramya, DO, FACP CPT-63197 Ofc Vst, Est Level IV 15:24:05 CDT Joanne Bui [facility] [facility] CPT-20709 Ofc Vst, Est Level V 15:35:53 RECEIVER Joannemahi Bui [facility] [place] [facility] CPT-57389 Ofc Vst, Est Level IV 16:23:15 RECEIVER Joanne Mcpherson Ramya DO, FACP CPT-60451 Ofc Vst, Est Level III 14:48:27 CDT Joanne Vilmabriana Bui [facility] CPT-64091 Ofc Vst, New Level III 09:49:12 RECEIVER Joanne Bui [facility] Procedures Code Procedure Name Date Entry Date Standard Description CPT-23010 Handling of specimen from office to lab 15:44:12 CDT CPT-84749 Preventive, Est, (40-64) 15:01:11 RECEIVER CPT-16772 Handling of specimen from office to lab 13:56:07 RECEIVER CPT-78249 Preventive, Est, (40-64) 13:56:07 RECEIVER CPT-29475 Preventive, Est, (40-64) 13:55:20 CDT CPT-57027 Preventive, Est, (40-64) 15:25:57 RECEIVER CPT-89740 Handling of specimen from office to lab 15:25:57 RECEIVER CPT-02526 Preventive, Est, (40-64) 12:28:48 RECEIVER CPT-94364 Handling of specimen from office to lab 12:28:48 RECEIVER
== END 2017-12-14 13:22 | disposition home or self-care (01) ==
LOC: SDC 08:56 → WS 14:00 → SDC 12-14 13:22
PROVIDERS: ATTEND Obstetrics & Gynecology
DX: N81.4 Uterovaginal prolapse, unspecified (principal); N39.3 Stress incontinence (female) (male); N72 Inflammatory disease of cervix uteri; N80.0 Endometriosis of uterus; N94.89 Other specified conditions associated with female genital organs and menstrual cycle; N83.8 Other noninflammatory disorders of ovary, fallopian tube and broad ligament; E03.9 Hypothyroidism, unspecified; Z87.891 Personal history of nicotine dependence; Z79.899 Other long term (current) drug therapy
CPT/HCPCS: 36415; 85025; 86850; 86900; 86901; 87081

== ENCOUNTER → 2018-07-22 | Outpatient (CLI) | payer OTHER ==
[~2018-07-22] MED LIST changes: +DOCU100C37 PO; +IBUP-1780 PO; +OXYC-465 PO; -SPIR25TA3 PO; +SPIR25TA5 PO
--- NOTE | 2018-07-22 18:45 | Diagnostic Imaging Report ---
INDICATION: Routine screening. Comparison is made with prior mammograms from 06/28/2017 and 06/20/2016. 2-D and 3-D bilateral screening mammography was performed with CAD. The current study was also evaluated with a Computer Aided Detection (CAD) system. FINDINGS: Both breasts are heterogeneously dense, limiting the sensitivity of mammography. The parenchymal pattern is stable. No dominant mass or malignant-appearing microcalcifications are seen. The axillae are unremarkable. IMPRESSION: No mammographic features suspicious for malignancy are identified. ACR BI-RADS Category 1: Negative. Result letter will be mailed to the patient. Note: At least 10% of breast cancer is not imaged by mammography. Dictated by: Dictated on workstation # [id number]
== END ==
LOC: RAD 12:14
PROVIDERS: ATTEND Internal Medicine
DX: Z12.31 Encounter for screening mammogram for malignant neoplasm of breast (principal)
CPT/HCPCS: 77067

== ENCOUNTER → 2018-07-24 | Outpatient (CLI) | payer OTHER ==
[~2018-07-24] VITALS: Ht 170.2 cm; Wt 61.2 kg
[~2018-07-24] MED LIST changes: +CATHETER FLUSH 10 ML SYR IVP PRN; +GADOBUTROL 7.5 MMOL/7.5 ML (GADAVIST) VIAL IV ONE; +IOHEXOL 300 MG/ML 30 ML (OMNIPAQUE 300) VIAL IV ONE; +LIDOCAINE 1% INJ 20 ML 20 ML VIAL INJ ONE
--- NOTE | 2018-07-24 13:49 | Diagnostic Imaging Report ---
INDICATION: Posterior left shoulder pain. FINDINGS: Patient was brought to the procedure room, placed on the bed in the supine position. The skin of the left shoulder was prepped and draped in the usual sterile fashion. A small amount of 1% lidocaine was utilized for local anesthesia. A 22-gauge needle was advanced into the left shoulder at the rotator interval. A 15 mL solution of iodinated contrast, normal saline, and gadolinium was injected under fluoroscopic observation. 22 seconds of fluoroscopy was utilized. Needle was withdrawn and hemostasis was obtained using manual compression. Patient tolerated the procedure well and was sent to MRI in satisfactory condition. IMPRESSION: Successful left shoulder injection of gadolinium contrast solution, using fluoroscopy. Dictated by: Dictated on workstation # [id number]
--- NOTE | 2018-07-24 14:58 | Diagnostic Imaging Report ---
EXAMINATION: Magnetic resonance imaging of the left shoulder with intra-articular contrast. DATE: July 24, 2018. COMPARISON: Left shoulder arthrogram July 24, 2018. HISTORY: 58-year-old female, left shoulder pain. TECHNIQUE: Magnetic Resonance Imaging sequences were performed of the shoulder following the intra-articular administration of contrast. FINDINGS: ROTATOR CUFF, LIGAMENTS, TENDONS, AND MUSCLES: The supraspinatus, infraspinatus, teres minor, and subscapularis tendons and muscles are intact. There is normal rotator cuff muscle bulk and signal. LONG HEAD OF BICEPS: The biceps labral attachment and long head of the biceps tendon is intact. The long head of the biceps tendon is normally positioned within the bicipital groove. GLENOHUMERAL JOINT: The humeral head is mildly posteriorly subluxed. There is a normal variant sub-labral foramen. The labrum is intact. There is no paralabral cyst. The articular cartilage is grossly intact. The axillary pouch extends more inferiorly than typical. There is no emma extravasation of contrast. The anterior band of the inferior glenohumeral ligament complex does appear intact. ACROMIOCLAVICULAR JOINT: The acromioclavicular joint is normally aligned. The coracoclavicular and coracoacromial ligaments are intact. There are mild acromioclavicular degenerative changes without large undersurface osteophyte. BONE: There is no os acromiale. Additional osseous morphology is unremarkable. The bone marrow signal is within normal limits. Specifically, negative for fracture, osteomyelitis, osteonecrosis, or marrow replacing process. BURSAE AND SOFT TISSUES: The bursae and soft tissue surrounding the shoulder are unremarkable. IMPRESSION: 1. Intact rotator cuff. 2. Mild acromioclavicular degenerative changes without undersurface osteophyte. 3. Mild posterior subluxation of the humeral head. Intact labrum. Intact articular cartilage. No intra-articular body or prominent synovitis. The axillary pouch does extend more inferior than typical; however, the anterior band of the inferior glenohumeral ligament complex does appear intact. There is also no emma extravasation of contrast. 4. No acute fracture, bone contusion, or evidence of osteonecrosis. Dictated by: Dictated on workstation # [id number]
== END | disposition home or self-care (01) ==
LOC: RAD 12:28
PROVIDERS: ATTEND Orthopaedic Surgery
DX: S43.022A Posterior subluxation of left humerus, initial encounter (principal); S43.432A Superior glenoid labrum lesion of left shoulder, initial encounter; M19.012 Primary osteoarthritis, left shoulder
CPT/HCPCS: 23350; 73040; 73222

== ENCOUNTER → 2019-08-03 | Outpatient (CLI) | payer OTHER ==
[~2019-08-03] MED LIST changes: -CATHETER FLUSH 10 ML SYR IVP PRN; -GADOBUTROL 7.5 MMOL/7.5 ML (GADAVIST) VIAL IV ONE; -IOHEXOL 300 MG/ML 30 ML (OMNIPAQUE 300) VIAL IV ONE; -LIDOCAINE 1% INJ 20 ML 20 ML VIAL INJ ONE
[2019-08-03 07:54] LABS: BASOPHILS # (AUTO) 0.1 10^3/uL (0.0-0.1); BASOPHILS % (AUTO) 1 % (0-10); EOSINOPHILS # (AUTO) 0.2 10^3/uL (0.0-0.3); EOSINOPHILS % (AUTO) 4 % (0-10); HEMATOCRIT 39 % (35-52); HEMOGLOBIN 12.9 G/DL (11.5-16.0); LYMPHOCYTES # (AUTO) 1.6 X 10^3 (1.0-4.0); LYMPHOCYTES % (AUTO) 30 % (12-44); MEAN CORPUSCULAR HEMOGLOBIN 33 PG (25-34); MEAN CORPUSCULAR HGB CONC 33 G/DL (32-36); MEAN CORPUSCULAR VOLUME 99 FL (80-99); MEAN PLATELET VOLUME 9.6 FL (7.4-10.4); MONOCYTES # (AUTO) 0.5 X 10^3 (0.0-1.0); MONOCYTES % (AUTO) 9 % (0-12); NEUTROPHILS # (AUTO) 2.9 X 10^3 (1.8-7.8); NEUTROPHILS % (AUTO) 56 % (42-75); PLATELET COUNT 235 10^3/uL (130-400); RED CELL DISTRIBUTION WIDTH 12.2 % (10.0-14.5); WHITE BLOOD COUNT 5.3 10^3/uL (4.3-11.0)
[2019-08-03 08:13] LABS: ALANINE AMINOTRANSFERASE 9 U/L (0-55); ALBUMIN 3.8 GM/DL (3.2-4.5); ALKALINE PHOSPHATASE 72 U/L (40-136); BILIRUBIN,TOTAL 0.5 MG/DL (0.1-1.0); BUN/CREATININE RATIO 18; CALCIUM 8.5 MG/DL (8.5-10.1); CARBON DIOXIDE 22 MMOL/L (21-32); CHLORIDE 108 MMOL/L (98-107); CHOLESTEROL 209 MG/DL (< 200); CREATININE SERUM 0.66 MG/DL (0.60-1.30); GFR ESTIMATED > 60; GLUCOSE 94 MG/DL (70-105); HDL CHOLESTEROL 69 MG/DL (40-60); POTASSIUM 3.7 MMOL/L (3.6-5.0); SODIUM 140 MMOL/L (135-145); TOTAL PROTEIN 6.5 GM/DL (6.4-8.2); TRIGLYCERIDES 83 MG/DL (<150); VLDL CHOLESTEROL 17 MG/DL (5-40)
[2019-08-03 08:35] LABS: FREE T4 (FREE THYROXINE) 1.21 NG/DL (0.70-1.48)
== END ==
LOC: LAB 07:42
PROVIDERS: ATTEND Internal Medicine
DX: Z00.00 Encounter for general adult medical examination without abnormal findings (principal); E03.9 Hypothyroidism, unspecified; E78.00 Pure hypercholesterolemia, unspecified; E78.1 Pure hyperglyceridemia
CPT/HCPCS: 36415; 80053; 80061; 84439; 84443; 85025

== ENCOUNTER → 2019-08-18 | Outpatient (CLI) | payer OTHER ==
--- NOTE | 2019-08-18 15:57 | Diagnostic Imaging Report ---
Indication: Routine screening. Comparison is made with prior mammogram from 07/22/2018 and 06/28/2017. 2-D and 3-D bilateral screening mammography was performed with CAD. Both breasts are heterogeneously dense, limiting the sensitivity of mammography. The parenchymal pattern is stable. No mass or malignant-appearing microcalcifications are seen. Axillae are unremarkable. IMPRESSION: BI-RADS Category 1. No mammographic features suspicious for malignancy are identified. ACR BI-RADS Category 1: Negative. Result letter will be mailed to the patient. Note: At least 10% of breast cancer is not imaged by mammography. Dictated by: Dictated on workstation # [id number]
== END ==
LOC: RAD 14:05
PROVIDERS: ATTEND Internal Medicine
DX: Z12.31 Encounter for screening mammogram for malignant neoplasm of breast (principal)
CPT/HCPCS: 77067

== ENCOUNTER → 2020-09-27 | Outpatient (CLI) | payer OTHER ==
[~2020-09-27] MED LIST changes: -OXYC-465 PO; +OXYC-556 PO
[2020-09-27 07:56] LABS: BASOPHILS # (AUTO) 0.1 10^3/uL (0.0-0.1); BASOPHILS % (AUTO) 1 % (0-10); EOSINOPHILS # (AUTO) 0.3 10^3/uL (0.0-0.3); EOSINOPHILS % (AUTO) 5 % (0-10); HEMATOCRIT 37 % (35-52); HEMOGLOBIN 12.2 g/dL (11.5-16.0); LYMPHOCYTES # (AUTO) 1.7 10^3/uL (1.0-4.0); LYMPHOCYTES % (AUTO) 29 % (12-44); MEAN CORPUSCULAR HEMOGLOBIN 33 pg (25-34); MEAN CORPUSCULAR HGB CONC 33 g/dL (32-36); MEAN CORPUSCULAR VOLUME 99 fL (80-99); MEAN PLATELET VOLUME 9.5 fL (9.0-12.2); MONOCYTES # (AUTO) 0.5 10^3/uL (0.0-1.0); MONOCYTES % (AUTO) 8 % (0-12); NEUTROPHILS # (AUTO) 3.4 10^3/uL (1.8-7.8); NEUTROPHILS % (AUTO) 57 % (42-75); PLATELET COUNT 246 10^3/uL (130-400); WHITE BLOOD COUNT 5.9 10^3/uL (4.3-11.0)
[2020-09-27 08:17] LABS: ALANINE AMINOTRANSFERASE 13 U/L (0-55); ALBUMIN 3.8 GM/DL (3.2-4.5); ALKALINE PHOSPHATASE 71 U/L (40-136); BILIRUBIN,TOTAL 0.3 MG/DL (0.1-1.0); BUN/CREATININE RATIO 21; CALCIUM 8.6 MG/DL (8.5-10.1); CARBON DIOXIDE 27 MMOL/L (21-32); CHLORIDE 106 MMOL/L (98-107); CHOLESTEROL 196 MG/DL (< 200); CREATININE SERUM 0.72 MG/DL (0.60-1.30); GFR ESTIMATED > 60; GLUCOSE 99 MG/DL (70-105); HDL CHOLESTEROL 71 MG/DL (40-60); POTASSIUM 4.6 MMOL/L (3.6-5.0); SODIUM 139 MMOL/L (135-145); TOTAL PROTEIN 6.9 GM/DL (6.4-8.2); TRIGLYCERIDES 89 MG/DL (<150); VLDL CHOLESTEROL 18 MG/DL (5-40)
[2020-09-27 08:38] LABS: FREE T4 (FREE THYROXINE) 1.01 NG/DL (0.70-1.48)
== END ==
LOC: LAB 07:38
PROVIDERS: ATTEND Internal Medicine
DX: Z00.00 Encounter for general adult medical examination without abnormal findings (principal); E03.9 Hypothyroidism, unspecified; E78.00 Pure hypercholesterolemia, unspecified; E78.1 Pure hyperglyceridemia
CPT/HCPCS: 36415; 80053; 80061; 84439; 84443; 85025

== ENCOUNTER → 2020-10-05 | Outpatient (CLI) | payer OTHER ==
--- NOTE | 2020-10-05 10:46 | Diagnostic Imaging Report ---
INDICATION: Routine screening. Comparison is made with prior mammogram 08/18/2019 and 07/22/2018. 2-D and 3-D bilateral screening mammography was performed with CAD. Both breasts are heterogeneously dense, limiting the sensitivity of mammography. Overall parenchymal pattern appears to be stable. No dominant mass or malignant appearing microcalcifications are seen. Benign nodule in the upper outer right breast is noted suggestive of intraparenchymal lymph node. Axillae appear to be stable. IMPRESSION: BI-RADS Category 2 No mammographic features suspicious for malignancy are identified. ACR BI-RADS Category 2: Benign findings. Result letter will be mailed to the patient. Note: At least 10% of breast cancer is not imaged by mammography. Dictated by: Dictated on workstation # [id number]
== END ==
LOC: RAD 08:34
PROVIDERS: ATTEND Internal Medicine
DX: Z12.31 Encounter for screening mammogram for malignant neoplasm of breast (principal)
CPT/HCPCS: 77063; 77067

== ENCOUNTER → 2020-12-13 | Outpatient (CLI) | payer OTHER ==
--- NOTE | 2020-12-13 09:50 | Diagnostic Imaging Report ---
INDICATION: Postmenopausal female. COMPARISON: None FINDINGS: AP Spine L1-L4: [BMD (g/cm2): 0.994] [T-Score: -1.7] [Z-Score: -0.5] [BMD Previous: NA] [BMD % Change: NA] LT Hip Neck: [BMD (g/cm2): 0.820] [T-Score: -1.6] [Z-Score: -0.3] LT Hip Total: [BMD (g/cm2):0.820] [T-Score:-1.5] [Z-Score: -0.6] [BMD Previous: NA] [BMD % Change: NA] RT Hip Neck: [BMD (g/cm2):0.824] [T-Score:-1.5] [Z-Score:-0.3] RT Hip Total: [BMD (g/cm2):0.839] [T-score:-1.3] [Z-Score:-0.4] [BMD Previous:NA] [BMD % Change:NA] *Indicates significant change from prior examination based on 95% confidence level. World Health Organization criteria for BMD interpretation classify patients as Normal (T-score at or above -1.0), Osteopenic (T-score between -1.0 and -2.5) or Osteoporotic (T-score at or below -2.5). LIMITATIONS AND MODIFICATION: None. FRACTURE RISK (FRAX SCORE): The ten year probability of (%): Major Osteoporotic Fracture: [7.6] Hip Fracture: [0.7] IMPRESSION: 1. Osteopenia (Low bone mass). 2. Baseline examination. 3. See below National Osteoporosis Foundation guidelines on when to potentially initiate pharmacologic therapy. Based on the National Osteoporosis Foundation Guidelines, pharmacologic treatment should be initiated in any of the following, unless clinical conditions suggest otherwise: * Any patient with prior fragility fracture of the hip or vertebrae. A spine fracture indicates 5X risk for subsequent spine fracture and 2X risk for subsequent hip fracture. * Osteoporosis (T-score <-2.5). * Postmenopausal women and men age 50 and older with low bone mass/osteopenia (T-score between -1.0 and -2.5) by DXA and 10-year major osteoporotic fracture greater than 20% or a 10-year probability of hip fracture greater than 3%. These fracture risks are supplied above in the FRAX score, if applicable. * Clinician judgement and/or patient preferences may indicate treatment for people with 10-year fracture probabilities above or below these levels. Dictated by: Dictated on workstation # [id number]
== END ==
LOC: RAD 11:30
PROVIDERS: ATTEND Internal Medicine
DX: Z13.820 Encounter for screening for osteoporosis (principal); M85.80 Other specified disorders of bone density and structure, unspecified site; Z78.0 Asymptomatic menopausal state
CPT/HCPCS: 77080

== ENCOUNTER 2021-03-28 05:40 | Outpatient (CLI) | payer OTHER ==
[~2021-03-28] VITALS: Ht 170.2 cm; Wt 64.0 kg
== END 2021-03-29 10:56 | disposition home or self-care (01) ==
LOC: PREOP 05:40
PROVIDERS: ATTEND Surgery
DX: Z01.818 Encounter for other preprocedural examination (principal)

== ENCOUNTER 2021-04-04 11:23 | Day surgery (SDC) | payer OTHER ==
[~2021-04-04] VITALS: Ht 170.2 cm; Wt 64.0 kg
[2021-04-04] MEDS ORDERED: LACTATED RINGERS 1,000 ML IV STA (11:26)
[2021-04-04] MEDS ORDERED: LACTATED RINGERS 1,000 ML IV ONE (11:27)
[2021-04-04 11:30] VITALS: BP 127/81
[2021-04-04] MEDS ORDERED: proPOfol 200 MG/20 ML (DIPRIVAN) VIAL IV ONE (13:20)
--- NOTE | 2021-04-04 13:29 | Progress Note-Pre Operative ---
Pre-Operative Progress Note H&P Reviewed The H&P was reviewed, patient examined and no changes noted. Date Seen by Provider: Apr 04, 2021 Time Seen by Provider: 13: Date H&P Reviewed: Apr 04, 2021 Time H&P Reviewed: 13:29 Pre-Operative Diagnosis: hx polyps MOE KLEIN DO Apr 04, 2021 13:29
--- NOTE | 2021-04-04 13:59 | Discharge Inst-Simple/Standard ---
Discharge Inst-Standard Patient Instructions/Follow Up Plan of Care/Instructions/FU: 2-3 weeks Quan Activity as Tolerated: Yes Discharge Diet: Regular Diet MOE KLEIN DO Apr 04, 2021 13:59
--- NOTE | 2021-04-04 13:59 | Progress Note-Post Operative ---
Post-Operative Progess Note Surgeon (s)/[employer]ating [employer] Ventilating (s) Surgeon MOE KLEIN DO Drafter Heating [employer] Ventilating: na Pre-Operative Diagnosis hx polyps Post-Operative Diagnosis descending colon polyp Procedure & Operative Findings Date of Procedure 04/04/21 Procedure Performed/Findings colonoscopy c snare polypectomy Anesthesia Type per [facility] Estimated Blood Loss Estimated blood loss (mL): none Specimens/Packing Specimens Removed descending colon polyp MOE KLEIN DO Apr 04, 2021 13:58
[2021-04-04 14:00] VITALS: BP 100/61
[2021-04-04 14:30] VITALS: BP 113/72
--- NOTE | 2021-04-04 14:41 | Anesthesia-General Post-Op ---
MAC Patient Condition Mental Status/LOC: Same as Preop Cardiovascular: Satisfactory Nausea/Vomiting: Absent Respiratory: Satisfactory Pain: Controlled Complications: Absent Post Op Complications Complications None Follow Up Care/Instructions Patient Instructions None needed. Anesthesiology Discharge Order Discharge Order Patient was seen after the procedure and she was doing well, no complaints, stable vital signs, no apparent adverse anesthesia problems. ADI MARTEL DO Apr 04, 2021 14:41
--- NOTE | 2021-04-04 17:22 | OPERATIVE REPORT ---
DATE OF SERVICE: 04/04/2021 PREOPERATIVE DIAGNOSIS: History of polyps. POSTOPERATIVE DIAGNOSIS: Colon polyp. PROCEDURE: Colonoscopy with snare polypectomy. SURGEON: Moe Glass DO ANESTHESIA: Per MDA. ESTIMATED BLOOD LOSS: None. COMPLICATIONS: None. INDICATIONS: The patient is a 60-year-old female with history of colon polyps. She understands risks and benefits and wishes to proceed. Consent was signed in the chart. DESCRIPTION OF PROCEDURE: The patient was taken to the endoscopy suite, placed in left lateral recumbent position. Timeout was performed. Digital rectal exam was performed. There were no palpable polyps, masses or ulcerations. Scope was inserted in the rectum, advanced all the way to cecum with minimal difficulty. Prep was adequate. Scope was then slowly retracted back. No polyps, masses or ulcerations within the cecum, ascending, transverse colon. In the descending colon, a small polyp was present, which snare polypectomy was performed. Scope was continuously retracted back. No polyps, masses or ulcerations within the remainder of the descending and sigmoid colon. Once in the rectum, scope was retroflexed noting no other pathology, just internal hemorrhoids. Scope was returned to its normal position, slowly withdrawn until completely removed. The patient tolerated procedure well without any complications. She was taken to recovery room in stable condition. RECOMMENDATIONS: The patient will follow up in the office in two to three weeks to discuss pathology results. The patient will need repeat colonoscopy in 5 years. Any issues before that be seen at that time. Job ID: [id number] DocumentID: [id number] Dictated Date: 04/04/2021 14:02:01 Bankruptcy Law Specialist Date: 04/04/2021 17:21:51 Dictated By: MOE GLASS DO
== END 2021-04-04 14:35 | disposition home or self-care (01) ==
LOC: ENDO 11:23
PROVIDERS: ATTEND Surgery
DX: Z12.11 Encounter for screening for malignant neoplasm of colon (principal); D12.4 Benign neoplasm of descending colon; K21.9 Gastro-esophageal reflux disease without esophagitis; F32.9 Major depressive disorder, single episode, unspecified; F41.9 Anxiety disorder, unspecified; E07.9 Disorder of thyroid, unspecified; Z80.9 Family history of malignant neoplasm, unspecified; Z79.899 Other long term (current) drug therapy; Z87.891 Personal history of nicotine dependence; Z79.890 Hormone replacement therapy

== ENCOUNTER → 2021-09-21 | Outpatient (CLI) | payer OTHER ==
[2021-09-21 08:00] LABS: BASOPHILS # (AUTO) 0.1 10^3/uL (0.0-0.1); BASOPHILS % (AUTO) 1 % (0-10); EOSINOPHILS # (AUTO) 0.3 10^3/uL (0.0-0.3); EOSINOPHILS % (AUTO) 4 % (0-10); HEMATOCRIT 41 % (35-52); HEMOGLOBIN 13.2 g/dL (11.5-16.0); LYMPHOCYTES # (AUTO) 1.6 10^3/uL (1.0-4.0); LYMPHOCYTES % (AUTO) 24 % (12-44); MEAN CORPUSCULAR HEMOGLOBIN 32 pg (25-34); MEAN CORPUSCULAR HGB CONC 32 g/dL (32-36); MEAN CORPUSCULAR VOLUME 98 fL (80-99); MEAN PLATELET VOLUME 9.4 fL (9.0-12.2); MONOCYTES # (AUTO) 0.5 10^3/uL (0.0-1.0); MONOCYTES % (AUTO) 8 % (0-12); NEUTROPHILS # (AUTO) 4.2 10^3/uL (1.8-7.8); NEUTROPHILS % (AUTO) 63 % (42-75); PLATELET COUNT 297 10^3/uL (130-400); WHITE BLOOD COUNT 6.6 10^3/uL (4.3-11.0)
[2021-09-21 08:47] LABS: ALBUMIN 3.9 GM/DL (3.2-4.5); BILIRUBIN,TOTAL 0.5 MG/DL (0.1-1.0); CALCIUM 9.1 MG/DL (8.5-10.1); CREATININE SERUM 0.74 MG/DL (0.60-1.30); FREE T4 (FREE THYROXINE) 0.96 NG/DL (0.70-1.48); POTASSIUM 4.5 MMOL/L (3.6-5.0); TOTAL PROTEIN 7.4 GM/DL (6.4-8.2)
== END ==
LOC: LAB 07:38
PROVIDERS: ATTEND Internal Medicine
DX: Z00.00 Encounter for general adult medical examination without abnormal findings (principal); E78.1 Pure hyperglyceridemia; E78.00 Pure hypercholesterolemia, unspecified; E03.9 Hypothyroidism, unspecified
CPT/HCPCS: 36415; 80053; 82465; 84439; 84443; 84478; 85025

== ENCOUNTER → 2022-04-25 | Outpatient (CLI) | payer OTHER ==
--- NOTE | 2022-04-25 09:17 | Diagnostic Imaging Report ---
INDICATION: Routine screening. COMPARISON: 10/05/2020 and 08/18/2019. TECHNIQUE: 2D and 3D bilateral screening mammography was performed with CAD. FINDINGS: Both breasts are heterogeneously dense, limiting the sensitivity of mammography. The parenchymal pattern is stable. No dominant mass or malignant-appearing microcalcifications are seen. The axillae are unremarkable. IMPRESSION: No mammographic features suspicious for malignancy are identified. ACR BI-RADS Category 1: Negative. Result letter will be mailed to the patient. Note: At least 10% of breast cancer is not imaged by mammography. Dictated by: Dictated on workstation # [id number]
== END ==
LOC: RAD 08:39
PROVIDERS: ATTEND Internal Medicine
DX: Z12.31 Encounter for screening mammogram for malignant neoplasm of breast (principal)
CPT/HCPCS: 77063; 77067

== ENCOUNTER → 2022-05-21 | Outpatient (REF) ==
--- NOTE | 2022-05-21 10:50 | Diagnostic Imaging Report ---
INDICATION: POSITIVE T-SPOT, AFTER ANNUAL TB TEST. TECHNIQUE: Two view chest 10:28 AM CORRELATION STUDY: None FINDINGS: The heart size, mediastinal configuration and pulmonary vasculature are within normal limits. The lungs are clear with no consolidating infiltrate. There is no significant pleural effusion or pneumothorax. Mild rightward rotation of the thoracic spine. IMPRESSION: 1. Negative for acute abnormality of the chest. No findings to suggest an acute or chronic infectious process of the lung pineda. Dictated by: Dictated on workstation # [id number]
== END | disposition home or self-care (01) ==
LOC: OCC 10:16
PROVIDERS: ATTEND Nurse Practitioner Family
DX: Z01.818 Encounter for other preprocedural examination (principal)
CPT/HCPCS: 71046

== ENCOUNTER → 2022-09-26 | Outpatient (CLI) | payer OTHER ==
[2022-09-26 08:08] LABS: BASOPHILS % (AUTO) 0 % (0-10); EOSINOPHILS # (AUTO) 0.2 10^3/uL (0.0-0.3); EOSINOPHILS % (AUTO) 2 % (0-10); HEMATOCRIT 39 % (35-52); LYMPHOCYTES # (AUTO) 1.2 10^3/uL (1.0-4.0); LYMPHOCYTES % (AUTO) 16 % (12-44); MEAN CORPUSCULAR HEMOGLOBIN 33 pg (25-34); MEAN CORPUSCULAR HGB CONC 34 g/dL (32-36); MEAN CORPUSCULAR VOLUME 97 fL (80-99); MEAN PLATELET VOLUME 9.4 fL (9.0-12.2); MONOCYTES # (AUTO) 0.5 10^3/uL (0.0-1.0); MONOCYTES % (AUTO) 6 % (0-12); NEUTROPHILS # (AUTO) 5.8 10^3/uL (1.8-7.8); NEUTROPHILS % (AUTO) 75 % (42-75); PLATELET COUNT 262 10^3/uL (130-400); WHITE BLOOD COUNT 7.6 10^3/uL (4.3-11.0)
[2022-09-26 08:30] LABS: ALBUMIN 4.1 GM/DL (3.2-4.5); BILIRUBIN,TOTAL 0.6 MG/DL (0.1-1.0); CREATININE SERUM 0.72 MG/DL (0.60-1.30); POTASSIUM 3.9 MMOL/L (3.6-5.0); TOTAL PROTEIN 7.5 GM/DL (6.4-8.2)
[2022-09-26 08:51] LABS: FREE T4 (FREE THYROXINE) 0.99 NG/DL (0.70-1.48)
== END ==
LOC: LAB 07:43
PROVIDERS: ATTEND Internal Medicine
DX: Z00.00 Encounter for general adult medical examination without abnormal findings (principal); R73.9 Hyperglycemia, unspecified; E03.9 Hypothyroidism, unspecified; E78.00 Pure hypercholesterolemia, unspecified; E78.1 Pure hyperglyceridemia
CPT/HCPCS: 36415; 80053; 80061; 83036; 84439; 84443; 85025

== ENCOUNTER → 2023-05-14 | Outpatient (CLI) | payer OTHER ==
[~2023-05-14] MED LIST changes: +GADOTERATE 0.5 MMOL/ML (CLARISCAN) 20 ML VIAL IV ONE
--- NOTE | 2023-05-14 10:04 | Diagnostic Imaging Report ---
EXAMINATION: Magnetic resonance imaging (MRI) of the brain and brainstem with and without contrast with dedicated views of the Temporal Bones and Internal Auditory Canals (IACs) DATE: 05/14/2023 9:40 AM INDICATION: Bilateral hearing loss, worse in the left ear. TECHNIQUE: Multiplanar, multisequence MR images were performed with and without contrast. Multiple T1 + T2 weighted images were obtained through temporal bone and IACs. 3D fiesta T2 weighted images were also obtained and reconstructed in coronal and sagittal planes. 15 cc of Multihance contrast was given intravenously. COMPARISON: None. FINDINGS: Both 7th and 8th nerve complexes are well visualized and normal. No mass within the internal auditory canal or cerebellopontine angle. The cochlear forms are normal with normal fluid signal within cochlea. The semicircular canals are normal. No abnormal enhancement. No acute infarction. No acute or chronic hemorrhage. The ventricles are normal in size and position without hydrocephalus. The scalp and calvarium are normal. The pituitary and sella are normal. No Chiari malformation. The visualized upper cervical spine is normal. The visualized portions of the orbits, mastoids and paranasal sinuses are normal. Normal flow voids in the distal internal carotid and basilar arteries indicate patency. IMPRESSION: Normal MRI of the internal auditory canals. No mass or abnormal enhancement. Dictated by: Dictated on workstation # [id number]
== END ==
LOC: RAD 08:50
PROVIDERS: ATTEND Otolaryngology Otolaryngology/Facial Plastic Surgery
DX: H90.42 Sensorineural hearing loss, unilateral, left ear, with unrestricted hearing on the contralateral side (principal)
CPT/HCPCS: 70553